=== PATIENT | male | born 1995 | race Caucasian/White ===

== ENCOUNTER 2022-09-25 11:46 | Inpatient (IN) | payer MEDICAID, OTHER ==
--- NOTE | 2022-09-25 12:19 | ED ---
Psych HPI - General Chief Complaint: Psychiatric Symptoms Stated Complaint: Mental Health Time Seen by Provider: 09/25/22 11:58 Source: patient, police, RN notes reviewed Mode of arrival: ambulatory - History of Present Illness Initial Comments: Patient is a 27-year-old male brought into the emergency room via [facility] escort as he is currently representing chronic any penitentiary for suicidal ideation. Patient has significant mental health history with multiple suicide attempts in the past. He reports that he has been diagnosed with bipolar depression along with schizophrenia and hears voices often. He states that the voices he currently hears are telling him to kill himself. He reports that he has been on medication in the past but has not been on any medication and approximately 6 months. He recently moved to [place] and has been in the area for 3 weeks. He was previously living in [place] where he obtained his previous mental health treatment. He has a past medical history significant for hypertension gastritis and pancreatitis with no evidence of current flares. - Related Data Allergies Allergy/AdvReac Type Severity Reaction Status Date / Time codeine Allergy Rash/Hives Verified 09/25/22 11:54 fentanyl Allergy Rash/Hives Verified 09/25/22 11:54 Review of Systems ROS Statement: Those systems with pertinent positive or pertinent negative responses have been documented in the HPI. ROS Other: All systems not noted in ROS Statement are negative. Past Medical History Past Medical History: Hypertension Additional Past Medical History / Comment(s): Gastritis, Pancreatitis History of Any Multi-Drug Resistant Organisms: None Reported Past Surgical History: No Surgical Hx Reported Past Psychological History: ADD/ADHD, Anxiety, Bipolar, Depression, Schizophrenia Smoking Status: Current every day smoker Past Alcohol Use History: Occasional Past Drug Use History: None Reported General Exam General appearance: alert, in no apparent distress Head exam: Present: atraumatic, normocephalic, normal inspection Eye exam: Present: normal appearance, PERRL, EOMI. Absent: scleral icterus, conjunctival injection, periorbital swelling ENT exam: Present: normal exam, mucous membranes moist Neck exam: Present: normal inspection, full ROM Respiratory exam: Present: normal lung sounds bilaterally. Absent: respiratory distress, wheezes, rales, rhonchi, stridor Cardiovascular Exam: Present: regular rate, normal rhythm, normal heart sounds. Absent: systolic murmur, diastolic murmur, rubs, gallop, clicks GI/Abdominal exam: Present: soft, normal bowel sounds. Absent: distended, tenderness, guarding, rebound, rigid Extremities exam: Present: normal inspection. Absent: pedal edema, joint swelling Back exam: Present: normal inspection Neurological exam: Present: alert, oriented X3, CN II-XII intact Psychiatric exam: Present: depressed, suicidal ideation Skin exam: Present: warm, dry, intact, normal color. Absent: rash Course Vital Signs 09/25/22 11:50 Temperature 97.9 F Pulse Rate 73 Respiratory 20 Rate Blood Pressure 145/86 O2 Sat by Pulse 97 Oximetry Medical Decision Making - Medical Decision Making 27-year-old male presenting for psychiatric evaluation for suicidal ideation with known bipolar depression and schizophrenia. Patient with hospital insurance clerk escort. Application of 50 gallon not applied due to presenting uniform; handcuffs to lower and upper extremities remain intact. Otherwise no other belongings at bedside. Breath alcohol test 0.00. Will cleared from a medical standpoint for EPS evaluation. EPS evaluation complete. Patient is voluntarily admitting himself for inpatient psychiatric treatment. Will discharge for admission to psychiatric services. Case discussed with Dr. Tovar. Disposition Clinical Impression: Depression, Suicidal ideation Disposition: TRANSFER TO PSYCH HOSP/UNIT Condition: Stable Is patient prescribed a controlled substance at d/c from ED?: No Referrals: None,Stated [Primary Care Provider] - 1-2 days Time of Disposition: 14:38
[2022-09-25] MEDS ORDERED: ACETAMINOPHEN TAB 325 MG TAB PO PRN (14:53)
[2022-09-25] MEDS ORDERED: HALOPERIDOL LACTATE 5 MG/ML 1 ML VIAL IM PRN (14:53)
[2022-09-25] MEDS ORDERED: MAG HYDROX/AL HYDROX/SIMETH 30 ML CUP PO PRN (14:53)
[2022-09-25] MEDS ORDERED: MAGNESIUM HYDROXIDE 2,400 MG/10 ML CUP PO PRN (14:53)
[2022-09-25] MEDS ORDERED: LORazepam 1 MG/0.5 ML VIAL IM PRN (15:00)
[2022-09-25] MEDS ORDERED: haloperidoL 5 MG TAB PO PRN (15:01)
--- NOTE | 2022-09-26 02:58 | P.CONS ---
History of Present Illness - Reason for Consult Consult date: 09/26/22 - History of Present Illness The patient is a 27-year-old male with a PMH of psychiatric illnesses who was brought in to the emergency room under police custody while in longterm for reported suicidal ideation. The patient was admitted to the mental health unit where he was seen and evaluated. The patient states that he wanted to get help for all the voices in his head. He reports no physical complaints at the time of interview. States that he smokes 3 packs of cigarettes daily. Denied experiencing chest discomfort, shortness of breath, fever, chills, cough, nausea, vomiting, abdominal pain, diarrhea. Review of systems: Pertinent positives and negatives as discussed in HPI, a complete review of systems was performed and all other systems are negative. Physical examination: General: non toxic, no distress, appears at stated age, normal weight Derm: no unusual rashes/lesions, no unusual ecchymoses, warm, dry Head: atraumatic, normocephalic, symmetric Eyes: EOMI, no lid lag, anicteric sclera ENT: Nose and ears atraumatic, no thrush, no pharyngeal erythema Neck: trachea midline, supple Mouth: no lip lesion, mucus membranes moist Cardiovascular: S1S2 reg, no murmur, no edema Lungs: CTA bilateral, no rhonchi, no rales , no accessory muscle use Abdominal: soft, nontender to palpation, no guarding Ext: no gross muscle atrophy, no contractures, Neuro: No gross focal neuro deficits noted Psych: Alert, oriented, appropriate affect Assessment/plan Tobacco abuse -Advised on importance of cessation Psychosis -As per psychiatry Thank you for allowing us to participate in the care of this patient. We will follow peripherally. Do not hesitate to contact us with questions. Someone can be reached from the [facility] hospitalist group at all hours of the day at [phone]. Past Medical History Past Medical History: Hypertension Additional Past Medical History / Comment(s): Gastritis, Pancreatitis, nate- short syndrome, angina History of Any Multi-Drug Resistant Organisms: None Reported Past Surgical History: No Surgical Hx Reported Past Anesthesia/Blood Transfusion Reactions: No Reported Reaction Past Psychological History: ADD/ADHD, Anxiety, Bipolar, Depression, Schizophrenia Smoking Status: Current every day smoker Past Alcohol Use History: Occasional Past Drug Use History: None Reported - Past Family History Mother Family Medical History: Hyperlipidemia Medications and Allergies Home Medications Medication Instructions Recorded Confirmed Type No Known Home Medications 09/25/22 09/25/22 History Allergies Allergy/AdvReac Type Severity Reaction Status Date / Time codeine Allergy Rash/Hives Verified 09/25/22 15:36 fentanyl Allergy Rash/Hives Verified 09/25/22 15:36 Physical Exam Vitals: Vital Signs Temp Pulse Pulse Resp BP BP Pulse Ox 09/26/22 01:31 97.5 F L 69 16 121/78 99 09/25/22 15:06 64 18 144/88 100 09/25/22 14:51 97.7 F 137/88 09/25/22 11:50 97.9 F 73 20 145/86 97 Intake and Output 09/25/22 09/25/22 09/26/22 14:59 22:59 06:59 Other: Weight 90.718 kg
[2022-09-26] MEDS: NICOTINE 14MG/24HR PATCH TRANSDERM SCH ×2 (10:14→20:00)
[2022-09-26] MEDS ORDERED: ARIPiprazole 5 MG TAB PO SCH (14:30)
[2022-09-26] MEDS: LORazepam 1 MG TAB PO PRN ×3 (14:40→23:57)
[2022-09-26] MEDS: DIVALPROEX 500 MG TABLET.DR PO SCH ×2 (14:40→20:00)
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
[2022-09-26] MEDS ORDERED: PRAZOSIN 1 MG CAP PO SCH (21:00)
[2022-09-26] MEDS ORDERED: traZODone HCL 50 MG TAB PO SCH (21:00)
[2022-09-27 00:04] LABS: Glucose,Whole Blood 101 mg/dL (70-110)
[2022-09-27] MEDS ORDERED: KETOROLAC 15 MG/ML 1 ML VIAL IM STA (00:40)
[2022-09-27] MEDS ORDERED: ONDANSETRON 4 MG/2 ML VIAL IM STA (00:41)
--- NOTE | 2022-09-27 00:53 | XR ---
EXAMINATION TYPE: XR chest 1V portable DATE OF EXAM: 09/27/2022 COMPARISON: NONE HISTORY: Chest pain TECHNIQUE: Single view FINDINGS: There is no heart failure nor confluent pneumonic infiltrate. Costophrenic angles are clear . There are no hilar masses. IMPRESSION: No active cardiopulmonary disease. Normal heart.
[2022-09-27 01:09] LABS: Appearance,Urine Clear (Clear); Bilirubin,Urine Negative (Negative); Blood,Urine Negative (Negative); Color,Urine Colorless; Glucose,Urine (UA) Negative (Negative); Ketones,Urine Negative (Negative); Leukocyte Esterase,Urine Negative (Negative); Nitrite,Urine Negative (Negative); PH, Urine 7.5 (5.0-8.0); Protein,Urine Negative (Negative); Specific Gravity,Urine 1.006 (1.001-1.035); Urobilinogen,Urine <2.0 mg/dL (<2.0)
[2022-09-27 01:11] LABS: HCT 40.4 % (39.0-53.0); HGB 14.2 gm/dL (13.0-17.5); MCH 31.2 pg (25.0-35.0); MCHC 35.2 g/dL (31.0-37.0); MCV 88.5 fL (80.0-100.0); Mean Platelet Volume 9.4; Platelet Count 264 k/uL (150-450); RBC 4.56 m/uL (4.30-5.90); RDW 12.7 % (11.5-15.5); WBC 10.8 k/uL (3.8-10.6)
[2022-09-27 01:20] LABS: Amphetamine Screen,Urine Not Detected (NotDetected); Barbiturate Screen,Urine Not Detected (NotDetected); Benzodiazepines Screen,Urine Not Detected (NotDetected); Cocaine Screen,Urine Not Detected (NotDetected); Methadone Screen, Urine Not Detected (NotDetected); Opiate Screen,Urine Not Detected (NotDetected); Oxycodone Screen, Urine Not Detected (NotDetected); Phencyclidine Screen,Urine Not Detected (NotDetected); Tricyclic Antidepressant,Urine Not Detected (NotDetected); Urn Cannabinoid Scrn Detected (NotDetected)
[2022-09-27 01:22] VITALS: RESP 20
[2022-09-27 01:29] LABS: AST 37 U/L (17-59); African American GFR (CKD) >90 (>60 ml/min/1.73 sqM); Albumin 5.3 g/dL (3.5-5.0); Alkaline Phosphatase 131 U/L (38-126); Anion Gap 23 mmol/L; Blood Urea Nitrogen 16 mg/dL (9-20); Carbon Dioxide 17 mmol/L (22-30); Chloride 97 mmol/L (98-107); Glucose 103 mg/dL (74-99); Non-African American GFR(CKD) >90 (>60 ml/min/1.73 sqM); Potassium 4.2 mmol/L (3.5-5.1); Sodium 137 mmol/L (137-145); Total Bilirubin 0.5 mg/dL (0.2-1.3); Total Protein 7.9 g/dL (6.3-8.2)
[2022-09-27 01:38] LABS: ALT 41 U/L (4-49)
[2022-09-27 01:38] LABS: ABG Base Excess 3.4 mmol/L; ABG HCO3 27 mmol/L (21-25); ABG Oxygen Saturation 92.8 % (94-97); ABG PCO2 38 mmHg (35-45); ABG PH 7.47 (7.35-7.45); ABG PO2 64 mmHg (83-108); ABG TCO2 28 mmol/L (19-24); Allen Test Performed? Yes
[2022-09-27 01:58] VITALS: TEMP 99.1
[2022-09-27 02:08] VITALS: BP 121/57; PULSE 93
--- NOTE | 2022-09-27 02:13 | P.EN ---
A- team: Indication: Chest pain, tremulousness Arrived on Scene to find: Patient with severe tremors involving all extremities, complaining of right-sided sharp pleuritic chest discomfort with radiation of the right arm, 10 out of 10 in intensity. The patient was initially admitted to the hospital for depression and suicidal ideation from group home had complained of tremors and agitation to the mental health unit RN and was given Haldol 5 mg by mouth and Ativan 1 mg by mouth at 2357. The patient was subsequently noted to be complaining of chest pain at 0009. The A team subsequently activated. Patient reported feeling overall not well but denied any additional complaints aside from the right-sided chest pain. Vital signs reviewed: BP 173/81, pulse 142, SpO2 98% on room air, temp 98.1F Patient seen and examined at bedside. General: Tremulous, anxious appearing, [appears at stated age] Derm: [warm], [dry] Head: [atraumatic], [normocephalic], [symmetric] Eyes: [EOMI], [no lid lag], [anicteric sclera] Mouth: [no lip lesion], [mucus membranes moist] Cardiovascular: [S1S2 reg], tachycardic, [no murmur], [positive posterior tibial pulse bilateral], Lungs: [CTA bilateral], [no rhonchi, no rales] , [no accessory muscle use] Abdominal: [soft], [ nontender to palpation], [no guarding], [no appreciable organomegaly] Ext: [no gross muscle atrophy], [no edema], [no contractures] Neuro: [ CN II-XI grossly intact], [no focal neuro deficits] Psych: [Alert], [oriented], anxious and tremulous Assessment/Plan: Agitation with tremulousness and right-sided pleuritic chest pain -Unclear etiology -EKG showing tachycardia with poor baseline -D-dimer, troponin, urine drug screen, and chest x-ray ordered -Continue to monitor the patient closely -Toradol ordered for possible musculoskeletal chest pain A Total of 45 minutes of critical care time was spent on the complex care of this patient.
--- NOTE | 2022-09-27 02:46 | CT ---
EXAMINATION TYPE: CT brain wo con DATE OF EXAM: 09/27/2022 COMPARISON: None HISTORY: apneic episode. ams CT DLP: 1115.4 mGycm Automated exposure control for dose reduction was used. Images of the brain obtained with no contrast. Ventricles and sulci appear normal. There is no mass effect or midline shift. No sign of intracranial hemorrhage. Calvarium is intact. There is normal aeration of the mastoid sinuses. IMPRESSION: Negative unenhanced head CT scan.
--- NOTE | 2022-09-27 02:55 | CT ---
EXAMINATION TYPE: CT angio chest DATE OF EXAM: 09/27/2022 COMPARISON: None HISTORY: elevated d-dimer CT DLP: 525.5 mGycm Automated exposure control for dose reduction was used. CONTRAST: Performed with IV Contrast, patient injected with 100 mL of Isovue 370. There are 3-D post processed images. Heart and mediastinum appear normal. There are no hilar masses. Thoracic aorta is intact. No aneurysm or dissection. No evidence of filling defect in the pulmonary arteries. The lungs are clear of infiltrate. No pleural effusion. The thoracic spine is intact. No fracture. St ernum is intact. IMPRESSION: Negative CT angiogram of the chest. No evidence of pulmonary embolism.
== END 2022-09-27 02:14 | disposition short-term general hospital (02) | DRG 885 ==
LOC: EC 11:46 → 3MHU 14:51
PROVIDERS: ADMIT Psychiatry & Neurology Psychiatry; ATTEND Psychiatry & Neurology Psychiatry
DX: F39 Unspecified mood [affective] disorder (principal); R45.851 Suicidal ideations; F17.210 Nicotine dependence, cigarettes, uncomplicated; F20.9 Schizophrenia, unspecified; F31.30 Bipolar disorder, current episode depressed, mild or moderate severity, unspecified; R07.89 Other chest pain; R00.0 Tachycardia, unspecified; F43.10 Post-traumatic stress disorder, unspecified; F60.9 Personality disorder, unspecified; I10 Essential (primary) hypertension; R45.850 Homicidal ideations; Y04.2XXA Assault by strike against or bumped into by another person, initial encounter; Z62.810 Personal history of physical and sexual abuse in childhood; Z81.8 Family history of other mental and behavioral disorders; Z91.51 Personal history of suicidal behavior
CPT/HCPCS: 36600; 70450; 71045; 71275; 80053; 80164; 80306; 81003; 82075; 82550; 82805; 83605; 84484; 85027; 85379; 87040; 87635; 93005; 99285

== ENCOUNTER 2022-09-27 01:36 | Inpatient (IN) | payer OTHER ==
[2022-09-27] MEDS ORDERED: ACETAMINOPHEN TAB 325 MG TAB PO PRN (02:55)
[2022-09-27] MEDS ORDERED: NALOXONE 0.4 MG/ML 1 ML VIAL IV PRN (02:55)
--- NOTE | 2022-09-27 03:19 | P.HPIM ---
History of Present Illness H&P Date: 09/27/22 The patient is a 27-year-old male with a PMH of psychiatric illnesses was brought in to the emergency room from intermediate due to suicidal ideation. The patient was admitted to the mental health unit. The patient had been in his usual state of health until about 11:30 PM on 09/26. He complained of gradually worsening tremors and anxiety. The patient was given Haldol 5 mg by mouth and Ativan 1 mg by mouth, following which the patient reported that his tremors had worsened and that he now also had right-sided pleuritic chest discomfort. The patient was initially seen on the mental health unit where he was noted to be agitated and tremulous, complaining of right-sided pleuritic chest pain. EKG had revealed sinus tachycardia with a poor baseline due to severe tremors. The patient was initially given Toradol IM for suspected costochondritis as well as Zofran for nausea. Troponin was obtained which was less than 0.012. Urine drug screen was positive for marijuana only, with chest x-ray unremarkable. The d- dimer was also obtained which was elevated at 0.61. The initial impression was that the patient's agitation could be due to right-sided costochondritis causing anxiety and possible panic attack. I was subsequently notified by the mental health unit RN at 1 AM on 09/27 that the patient had become lethargic and hypoxic. He was seen again at the bedside on the mental health unit. He reported ongoing right-sided chest pain but stated that he now feels tired. The patient was noted to be having apneic episodes with SpO2 dropping into the 70s with perioral cyanosis noted. The patient was arousable with tactile stimulation with subsequent improvement in the SpO2. The patient denied fever, abdominal pain, diarrhea. Denied headache, weakness, numbness, tingling. Review of systems: Pertinent positives and negatives as discussed in HPI, a complete review of systems was performed and all other systems are negative. Physical examination: General: non toxic, no distress, appears at stated age, normal weight Derm: no unusual rashes/lesions, warm Head: atraumatic, normocephalic, symmetric Eyes: EOMI, no lid lag, anicteric sclera, pupils equal round reactive to light ENT: Nose and ears atraumatic Neck: No cervical lymphadenopathy, trachea midline, supple Mouth: no lip lesion, mucus membranes moist Cardiovascular: S1S2 reg, no murmur, positive dorsalis pedis pulse bilateral, no edema Lungs: CTA bilateral, no rhonchi, no rales, intermittent apneic episodes Abdominal: soft, nontender to palpation, no guarding Ext: muscle strength 4 out of 5 in all 4 extremities grossly, no gross muscle atrophy, no contractures Neuro: CN II-XI grossly intact, no gross focal neuro deficits Psych: Lethargic, appropriate affect Assessment/plan Altered mental status with respiratory depression, unclear etiology, unable to rule out neuroleptic malignant syndrome with less likely sepsis versus seizure disorder versus medication reaction -CT angiogram chest ordered -CT brain ordered -Case was discussed in detail with neurologist and char filter operator radio station engineer -Patient transferred to medical ICU due to concerns for impending respiratory failure -Follow-up CK, lactic acid, Depakote levels, CBC, and CMP -Patient afebrile -Neurology consulted Depression with suicidal ideation -Defer to psychiatry DVT prophylaxis -Heparin subq The patient is admitted with an anticipated greater than 2 midnight stay for evaluation of altered mental status CODE STATUS: Full Code Discussed with: Patient Anticipated discharge date: 2-[address]: [facility] Past Medical History Past Medical History: Hypertension Additional Past Medical History / Comment(s): Gastritis, Pancreatitis, nate- short syndrome, angina History of Any Multi-Drug Resistant Organisms: None Reported Past Surgical History: No Surgical Hx Reported Past Anesthesia/Blood Transfusion Reactions: No Reported Reaction Past Psychological History: ADD/ADHD, Anxiety, Bipolar, Depression, Schizophrenia Smoking Status: Current every day smoker Past Alcohol Use History: Occasional Past Drug Use History: None Reported - Past Family History Mother Family Medical History: Hyperlipidemia Medications and Allergies Home Medications Medication Instructions Recorded Confirmed Type No Known Home Medications 09/25/22 09/25/22 History Allergies Allergy/AdvReac Type Severity Reaction Status Date / Time codeine Allergy Rash/Hives Verified 09/25/22 15:36 fentanyl Allergy Rash/Hives Verified 09/25/22 15:36 Physical Exam Vitals: Intake and Output 09/26/22 09/26/22 09/27/22 14:59 22:59 05:59 Other: Weight 86.5 kg
[2022-09-27 05:49] LABS: Basophils # (A) 0.1 k/uL (0-0.2); Basophils % (A) 1 %; Eosinophils # (A) 0.2 k/uL (0-0.7); Eosinophils % (A) 2 %; HCT 40.7 % (39.0-53.0); HGB 13.9 gm/dL (13.0-17.5); Lymphocytes # (A) 2.7 k/uL (1.0-4.8); Lymphocytes % (A) 26 %; MCH 30.2 pg (25.0-35.0); MCV 88.8 fL (80.0-100.0); Mean Platelet Volume 8.9; Monocytes # (A) 0.5 k/uL (0-1.0); Monocytes % (A) 5 %; Neutrophils # (A) 6.6 k/uL (1.3-7.7); Neutrophils % (A) 65 %; Platelet Count 271 k/uL (150-450); RBC 4.59 m/uL (4.30-5.90); RDW 12.7 % (11.5-15.5); WBC 10.3 k/uL (3.8-10.6)
[2022-09-27 06:04] LABS: African American GFR (CKD) >90 (>60 ml/min/1.73 sqM); Anion Gap 13 mmol/L; Blood Urea Nitrogen 17 mg/dL (9-20); Calcium 9.1 mg/dL (8.4-10.2); Carbon Dioxide 23 mmol/L (22-30); Chloride 99 mmol/L (98-107); Glucose 94 mg/dL (74-99); Magnesium 2.1 mg/dL (1.6-2.3); Non-African American GFR(CKD) >90 (>60 ml/min/1.73 sqM); Potassium 4.2 mmol/L (3.5-5.1); Sodium 135 mmol/L (137-145)
--- NOTE | 2022-09-27 10:07 | P.PN ---
Progress Note - Text Progress Note Date: 09/27/22 Patient was seen and examined today, he told me that last night he had seizure- like activity shaking both arms and legs after his psychiatric medications were started. Denied loss of consciousness, tongue biting, urinary incontinence. He also had left and right-sided chest pains and was hypoxic as well. CT angiogram of the chest was negative, head CT was negative. Case was discussed with neurology, medication side effects is high in the differential. He will need an EEG done, to rule out seizure. Neurologist recommended starting Depakote for mood stabilization as well as seizure prevention. Neurologist stated this is unlikely neuroleptic malignant syndrome as his CK was not that high. Continue to monitor in the medical floor for 1 more day then if stable can go back to mental health unit.
--- NOTE | 2022-09-27 10:09 | P.CNPUL ---
History of Present Illness Consult date: 09/27/22 Requesting physician: Nelsy Johnson Reason for consult: hypoxemia, other Chief complaint: Hypotension. History of present illness: Pulmonary/critical care consultation dated 09/27/2022. This is a 27-year-old white male who was admitted to the psychiatric unit, because of suicidal ideation. Apparently, last night at 11:30 PM, the patient developed anxiety and tremors. He was treated with Ativan 1 mg and Haldol 5 mg. After that, the patient's blood pressure dropped and his saturations drop. A rapid response team was called. The patient was given Toradol, and Zofran, and because the patient was so unstable, the patient was transferred to the ICU for further monitoring and management. Currently, the patient's on room air. He's not receiving any IV fluids. After he got to the ICU, he was completely stable and stable throughout the night. It is not very clear what happened to him last night. I did speak to the hospital doctor timber poisoner last night. Initially, they thought he might have a pulmonary embolism. Studies were done. White count 10.3, hemoglobin 13.9, hematocrit 40.7, and platelet count normal. Sodium 135, potassium 4.2, chlorides 99, CO2 23, anion gap 13, BUN 17, and creatinine 0.95. CT angiogram was negative for pulmonary embolism. The brain CT was also negat fe. The chest x-ray was normal. Review of Systems REVIEW OF SYSTEMS: Currently, the patient has no complaints. CONSTITUTIONAL: [Negative.] NEUROLOGIC: [ Negative.] HEENT: [ Negative.] CARDIAC: [Negative.] PULMONARY: [Negative.] GI: [Negative.] : [Negative.] RHEUMATOLOGIC: [ Negative.] IMMUNOLOGIC: [ Negative.] ENDOCRINE: [Negative. ] DERMATOLOGIC: [Negative.] Past Medical History Past Medical History: Hypertension Additional Past Medical History / Comment(s): Gastritis, Pancreatitis, nate- short syndrome, angina History of Any Multi-Drug Resistant Organisms: None Reported Past Surgical History: No Surgical Hx Reported Past Anesthesia/Blood Transfusion Reactions: No Reported Reaction Past Psychological History: ADD/ADHD, Anxiety, Bipolar, Depression, Schizophrenia Smoking Status: Current every day smoker Past Alcohol Use History: Occasional Past Drug Use History: None Reported - Past Family History Mother Family Medical History: Hyperlipidemia Father Family Medical History: Chest Pain / Angina Additional Family Medical History / Comment(s): Heart murmmur Medications and Allergies Home Medications Medication Instructions Recorded Confirmed Type No Known Home Medications 09/25/22 09/25/22 History Allergies Allergy/AdvReac Type Severity Reaction Status Date / Time codeine Allergy Rash/Hives Verified 09/25/22 15:36 fentanyl Allergy Rash/Hives Verified 09/25/22 15:36 Physical Exam Osteopathic Statement: *. No significant issues noted on an osteopathic s tructural exam other than those noted in the History and Physical/Consult. Vitals: Vital Signs Temp Pulse Resp BP Pulse Ox 09/27/22 08:00 97.8 F 62 17 95/48 95 09/27/22 07:35 95 09/27/22 07:00 67 105/66 95 09/27/22 06:00 69 95/46 09/27/22 05:00 67 129/60 94 L 09/27/22 04:00 81 23 109/51 97 09/27/22 03:40 90 16 09/27/22 03:00 93 130/74 97 09/27/22 02:41 97.5 F L 85 28 H 130/74 97 Intake and Output 09/26/22 09/27/22 09/27/22 23:59 06:59 14:59 Intake Total 200 Output Total 250 Balance -50 Intake: Oral 200 Output: Urine 250 Other: # Voids 0 Weight No acute distress, oriented 3. Room air saturation 95%. HEENT examination is grossly unremarkable. Neck supple. Full range of motion. No adenopathy thyromegaly or neck vein distention. Cardiovascular examination reveals regular rhythm rate. S1-S2 normal. No S3 or S4. No discernible murmur noted. Heart rate 62 bpm. Lungs reveal clear breath sounds. Breath sounds are equal bilaterally. No adventitious lung sounds including wheezes rhonchi or crackles. Abdomen soft bowel sounds are heard. No masses or tenderness. Extremities are intact. No cyanosis clubbing or edema. Skin is without rash or lesion. Neurologic examination is brief but nonfocal. Results - Laboratory Findings CBC and BMP: 09/27/22 04:40 09/27/22 04:40 Abnormal lab findings: Abnormal Labs 09/27/22 04:40 Sodium 135 L - Diagnostic Findings Chest x-ray: image reviewed CT scan - chest: image reviewed Assessment and Plan Assessment: Tremors, anxiety, hypotension, and hypoxemic, all of which may relate to the administration of Ativan and Haldol. Currently, the patient is asymptomatic. History of suicidal ideation. No significant past medical history. Drug screen positive for THC. Plan: Plan dated 09/27/2022. Not sure what happened to the patient last night. Anyway, the patient's back to baseline. Vital signs are stable. Actually, through the night, in the intensive care unit, there've been no changes in his vital signs, and he is not manifesting any additional hypotension or low saturations. The patient could be transferred back to psychiatry. His reaction may be to the medications he received, i.e. Ativan and Haldol. CAT scan of the brain, CT angiogram, and chest x-ray, were all normal. Time with Patient: Greater than 30
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
[2022-09-27] MEDS: DIVALPROEX 250 MG TABLET.DR PO SCH (20:13)
[2022-09-27] MEDS ORDERED: traZODone HCL 50 MG TAB PO SCH (21:00)
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
[2022-09-28 04:25] LABS: Basophils # (A) 0.1 k/uL (0-0.2); Basophils % (A) 1 %; Eosinophils # (A) 0.3 k/uL (0-0.7); Eosinophils % (A) 3 %; HCT 42.3 % (39.0-53.0); HGB 14.4 gm/dL (13.0-17.5); Lymphocytes # (A) 3.3 k/uL (1.0-4.8); Lymphocytes % (A) 40 %; MCH 30.8 pg (25.0-35.0); MCHC 33.9 g/dL (31.0-37.0); MCV 90.7 fL (80.0-100.0); Mean Platelet Volume 8.6; Monocytes # (A) 0.3 k/uL (0-1.0); Monocytes % (A) 4 %; Neutrophils # (A) 4.2 k/uL (1.3-7.7); Neutrophils % (A) 50 %; Platelet Count 256 k/uL (150-450); RBC 4.67 m/uL (4.30-5.90); RDW 12.8 % (11.5-15.5); WBC 8.3 k/uL (3.8-10.6)
[2022-09-28 04:36] LABS: African American GFR (CKD) >90 (>60 ml/min/1.73 sqM); Anion Gap 7 mmol/L; Blood Urea Nitrogen 18 mg/dL (9-20); Calcium 9.2 mg/dL (8.4-10.2); Carbon Dioxide 25 mmol/L (22-30); Chloride 105 mmol/L (98-107); Glucose 92 mg/dL (74-99); Non-African American GFR(CKD) >90 (>60 ml/min/1.73 sqM); Potassium 4.5 mmol/L (3.5-5.1); Sodium 137 mmol/L (137-145)
--- NOTE | 2022-09-28 08:49 | P.PN ---
Progress Note - Text Progress Note Date: 09/28/22 The preliminary STAT EEG on 09/27/2022: This is a normal routine EEG during wakefulness. There is no focal slowing, epileptiform discharges or seizures on the EEG. I spoke with the patient's nurse and updated of the result. I was notified no overnight events and patient continues to be at baseline. From Neurological perspective, patient is clear to discharge to psychiatry unit.
[2022-09-28] MEDS ORDERED: ENOXAPARIN 40 MG/0.4 ML SYRINGE SQ SCH (09:45)
--- NOTE | 2022-09-28 09:48 | P.PN ---
Subjective Progress Note Date: 09/28/22 Principal diagnosis: mood disorder Hospital Course: 27-year-old with history of psychiatric illnesses was initially brought to the ER from senior care due to suicidal ideation. Patient was admitted to mental health unit. On 09/27, patient was found to be more lethargic and hypoxic, and was transferred to medical ICU for concerns of impending respiratory failure. Patient was evaluated by neurology, computer forwarding system markup clerk. EEG completed, no epileptiform discharges or seizures. Was recommended to resume Depakote. Patient remained completely stable while in the ICU. He could have had an adverse reaction to medications. Imaging were all normal. Patient evaluated by psychiatry, can be transferred to mental health unit once medically stable. Subjective: Patient seen and examined at bedside. No acute events overnight. He claims that he is still having anxiety, but denies any chest pain, shortness of breath, abdominal pain, diarrhea, constipation, or urinary complaints. Pertinent positives and negatives as discussed above, a complete review of systems was performed and all other systems are negative. Vitals Signs Reviewed. General: nontoxic, no distress, appears at stated age Derm: warm, dry Head: atraumatic, normocephalic, symmetric Eyes: EOMI, no lid lag, anicteric sclera Mouth: no lip lesion, mucus membranes moist Cardiovascular: S1S2 reg, no murmur Lungs: CTA bilateral, no rhonchi, no rales , no accessory muscle use Abdominal: soft, nontender to palpation, no guarding, no appreciable organomegaly Ext: no gross muscle atrophy, no edema, no contractures Neuro: CN II-XI grossly intact, no focal neuro deficits Psych: Alert, oriented, appropriate affect, anxious appearing Assessment and Plan: Acute encephalopathy - resolved -Possibly nonepileptic seizure -EEG shows no epileptiform discharges or seizure activity -Labs and imaging unremarkable -will likely transfer to mental health unit Mood disorder Suicidal ideations -Psychiatry following -On Depakote -Trazodone for sleep -Holding prazosin and Abilify per psychiatry -Continue 1:1 sitter -Suicide precautions Nicotine dependence -Counseled regarding cessation Code status: Full code Anticipated discharge place: [facility] Anticipated discharge time: Likely today Objective - Vital Signs Vital signs: Vital Signs Temp 97.6 F 09/27/22 16:00 Pulse 55 L 09/28/22 02:17 Resp 17 09/28/22 02:17 BP 117/74 11/06/22 16:00 Pulse Ox 98 09/27/22 16:00 FiO2 Intake & Output 09/27/22 09/28/22 09/28/22 18:59 06:59 18:59 Intake Total 200 240 Output Total 1050 850 Balance -850 -610 Weight 88.3 kg Intake: Oral 200 240 Output: Urine 1050 850 Other: # Voids 0 - Labs CBC & Chem 7: 09/28/22 03:30 09/28/22 03:30
[2022-09-28] MEDS: DIVALPROEX 250 MG TABLET.DR PO SCH (09:57)
[2022-09-28 10:05] VITALS: RESP 18
--- NOTE | 2022-09-28 12:43 | P.PN ---
Subjective Progress Note Date: 09/28/22 Principal diagnosis: Acute psychosis with tremors anxiety requiring Ativan and Haldol and suicidal ideations This is a 27-year-old white male who was admitted to the psychiatric unit, because of suicidal ideation. Apparently, last night at 11:30 PM, the patient developed anxiety and tremors. He was treated with Ativan 1 mg and Haldol 5 mg. After that, the patient's blood pressure dropped and his saturations drop. A rapid response team was called. The patient was given Toradol, and Zofran, and because the patient was so unstable, the patient was transferred to the ICU for further monitoring and management. Currently, the patient's on room air. He's not receiving any IV fluids. After he got to the ICU, he was completely stable and stable throughout the night. It is not very clear what happened to him last night. I did speak to the hospital doctor customer contact specialist last night. Initially, they thought he might have a pulmonary embolism. Studies were done. White count 10.3, hemoglobin 13.9, hematocrit 40.7, and platelet count normal. Sodium 135, potassium 4.2, chlorides 99, CO2 23, anion gap 13, BUN 17, and creatinine 0.95. CT angiogram was negative for pulmonary embolism. The brain CT was also negative. The chest x-ray was normal. Reevaluated today on 09/28/22 patient remains in the ICU as an overflow, waiting for a psychiatric bed to open. Patient is calm, very pleasant, in no distress, he is hemodynamically stable, patient is on room air, no issues overnight. CBC is normal elect lites are normal renal profile is normal. Hence I plan to transfer the patient to the psychiatric kimbrough sometime later today Objective - Vital Signs Vital signs: Vital Signs Temp 97.7 F 09/28/22 10:04 Pulse 63 09/28/22 10:04 Resp 18 09/28/22 10:04 BP 128/73 09/28/22 10:04 Pulse Ox 95 09/28/22 10:04 FiO2 Intake & Output 09/27/22 09/28/22 09/28/22 18:59 06:59 18:59 Intake Total 200 240 300 Output Total 1050 850 450 Balance -850 -610 -150 Weight 88.3 kg Intake: Oral 200 240 300 Output: Urine 1050 850 450 Other: # Voids 0 - Exam Physical Exam: Revealed a 27-year-old white male in no distress on room air Head: Atraumatic, normocephalic. HEENT:[Neck is supple.] [No neck masses.] [No thyromegaly.] [No JVD.] Chest: [Clear throughout, no crackles, no rhonchi, no wheezes.] Cardiac Exam: [Normal S1 and S2, no S3 gallop, no murmur.] Abdomen: [Soft, nontender, no megaly, no rebound, no guarding, normal bowel sounds.] Extremities: [No clubbing, no edema, no cyanosis.] Neurological Exam: [No focal neurologic deficit.] Alert oriented 3 Psychiatric: Normal mood affect and normal mental status examination. Skin: Normal. Musculoskeletal: No deformities and no limitation in range of motion - Labs CBC & Chem 7: 09/28/22 03:30 09/28/22 03:30 Assessment and Plan Assessment: Impression: Acute encephalopathy with symptoms of psychosis, suicidal ideations, resolved. Patient is doing great today, he is extremely calm, basically back to normal, and I plan to transfer the patient out of the ICU to psychiatry. Suicidal ideations, resolved Recommendation: Continue treatment plan as per psychiatry and neurology on the case. We will sign off and see the patient on when necessary basis Time with Patient: Less than 30
--- NOTE | 2022-09-28 13:13 | CDI ---
Date: 09/28/2001 12:00:00 AM From: Etienne Phoenix Phone: Admit Date: 09/27/2022 02:15:00 AM Patient Name: Freedom Bright Visit Number: [id number] Discharge Date: ATTENTION: The Clinical Documentation Specialists (CDI) and [facility] Coding Staff appreciate your assistance in clarifying documentation. Please respond to the clarification below the line at the bottom and electronically sign. The CDI & [facility] Coding staff will review the response and follow-up if needed. Please note: Queries are made part of the Legal Health Record. If you have any questions, please contact the author of this message via ITS. Dr. Sharad Welsh Acute Encephalopathy is documented per the 09/28 Progress note. Additional clarification regarding the type of encephalopathy is requested. History/Risk Factors: 27yo male with psychiatric illnesses brought in with suicidal ideation. While on the mental health unit the patient complained of worsening anxiety and tremors, became lethargic and hypoxic, and was subsequently transferred to the intensive care unit for further care. Clinical Indicators: 09/27 H&P: Altered mental status - unclear etiology. Given 5mg Haldol po and 1mg Ativan po while on mental health unit. Possible etiologies include Neuroleptic Malignant syndrome, less likely Sepsis, vs Seizure disorder vs Medication reaction. 09/27 Neurology consult: Encephalopathy of unknow etiology but could be due to as a result of medication use - While at the unit the patient was getting Depakote 500mg every 12 hours. Also, he was on Abilify 5mg, prazosin 1mg daily at bedtime, trazadone 50mg. Again, patient stated that he was not on medication for almost 3 weeks for his psychiatric medicationOf note since the patient has been in the ICU patients nurse stated that he is back to baseline and no further confusion or tremor. His psychiatric medication was placed on hold. 09/28 Progress note: Acute Encephalopathy Resolved, possibly non-epileptic seizure, EEG shows no epileptiform discharges or seizure activity, labs and imaging unremarkable. Labs: CK 459, WBC 10.3, UDS with no findings. EE/6 Normal EEG during wakefulness. No focal slowing, epileptiform discharges or seizures. Treatment: Psychiatric medications held while inpatient, Depakote reduced from 500mg to 250mg BID. Please clarify the type of encephalopathy, if known: [ ] Metabolic Encephalopathy [ x ] Toxic Encephalopathy [ ] Other, please specify [ ] Unable to determine MTDD
--- NOTE | 2022-09-28 14:24 | P.PN ---
Subjective Progress Note Date: 09/28/22 No further episodes of confusion, tremors. Patient continues to be stable and ICU according to the nurse. She states that he's doing well and denies of any neurological issues. Objective - Vital Signs Vital signs: Vital Signs Temp 97.7 F 09/28/22 10:04 Pulse 63 09/28/22 10:04 Resp 18 09/28/22 10:04 BP 128/73 09/28/22 10:04 Pulse Ox 95 09/28/22 10:04 FiO2 Intake & Output 09/27/22 09/28/22 09/28/22 18:59 06:59 18:59 Intake Total 200 240 900 Output Total 1050 850 450 Balance -850 -610 450 Weight 88.3 kg Intake: Oral 200 240 900 Output: Urine 1050 850 450 Other: # Voids 0 - Exam GENERAL: The patient is lying in bed and is not in acute distress. NEUROLOGICAL: Higher mental function: The patient is awake, alert, oriented to self, place and time. Patient is following commands. No aphasia and no neglect. Cranial nerves: The pupils are round, equal and reactive to light and accommodation. Visual ferris are full to confrontation throughout. Extraocular movement is intact no nystagmus is noted. Facial sensation is normal to touch throughout. The facial strength is normal throughout. Hearing is normal kala aterally to hand rub. Tongue is midline and moved [id number] without any difficulty. No dysarthria is noted. Shoulder shrug is normal bilaterally. Motor: The strength is 5 over 5 throughout. Normal tone and bulk. Cerebellum: Normal finger to nose heel to hughes bilaterally. Sensation: Sensation is normal to touch throughout. Reflexes (right/left): 2+ throughout.. Plantars are downgoing bilaterally. While in psychiatric unit as result of episode of confusion work-up he had was: As a result he had CT of the head which is reported as negative unenhanced head CT scan. His plasma lactic acid the vein was 1.9 which is within normal limits. The CK level is 459 which is mildly elevated that. White blood cell is 10.3 thousand and the rest of the CBC with differential is unremarkable. His urine drug screen was not detected. His velasquez virus PCR was not detected on presentation. - Labs CBC & Chem 7: 09/28/22 03:30 11/07/22 03:30 Assessment and Plan Assessment: Encephalopathy of unknown etiology but could be due to as a result of medication use (multiple psychiatric medications). Very unlikely seizure since lactic acid vein was normal and cbc with diff was not reactive and no clear seizure activity. EEG on 09/27/2022 is normal. Patient has been back to baseline since throughout this admission. Mood disorder unspecified Depression with suicidal ideation Marijuana use Plan: STAT EEG on 09/27/2022: Normal. There is no focal slowing, epileptiform discharges or seizure. Currently on Depakote 250mg 1 tab bid for mood (but also has antiepileptic effect). Psychiatric team is consulted The plan discussed with the patient and his nurse. Otherwise no additional workup is needed from a neurological perspective. Neurology will sign off. Please reconsult if needed. Time with Patient: Less than 30
--- NOTE | 2022-09-28 15:32 | P.DS ---
Providers Date of admission: 09/27/22 02:15 Expected date of discharge: 09/28/22 Attending physician: Nelsy Johnson MD Consults: 09/27/22 02:55 Consult Physician Stat Consulting Provider: Irineo Eldridge Consult Reason/Comments: ICU management Do you want consulting provider notified?: Already Contacted 09/27/22 03:16 Consult Physician Urgent Consulting Provider: Pancho Eldridge Consult Reason/Comments: Altered mental status Do you want consulting provider notified?: Yes 09/27/22 03:30 Consult Physician Routine Consulting Provider: Psychiatry - [facility] Psychiatry Consult Reason/Comments: suicidal ideation Do you want consulting provider notified?: Yes, Notify in am Primary care physician: Stated None Hospital Course: Discharge Diagnosis: Acute encephalopathy Possible nonepileptic seizure More disorder Anxiety Suicidal ideations Insomnia Hospital Course: 27-year-old with history of psychiatric illnesses was initially brought to the ER from group home due to suicidal ideation. Patient was admitted to mental health unit. On 09/27, patient was found to be more lethargic and hypoxic, and was transferred to medical ICU for concerns of impending respiratory failure. Patient was evaluated by neurology, and nephrologist. EEG completed, no epileptiform discharges or seizures. Was recommended to resume Depakote. Patient remained completely stable while in the ICU. He could have had an adverse reaction to medications. Imaging were all normal. Patient to be transferred back to psychiatry on mental health unit. Patient seen and examined at bedside. Vital signs reviewed and stable. General: nontoxic, no distress, appears at stated age Derm: warm, dry Head: atraumatic, normocephalic, symmetric Eyes: EOMI, no lid lag, anicteric sclera Mouth: no lip lesion, mucus membranes moist Cardiovascular: S1S2 reg, no murmur Lungs: CTA bilateral, no rhonchi, no rales , no accessory muscle use Abdominal: soft, nontender to palpation, no guarding, no appreciable organomegaly Ext: no gross muscle atrophy, no edema, no contractures Neuro: CN II-XI grossly intact, no focal neuro deficits Psych: Alert, oriented, appropriate affect, anxious appearing A total of 31 minutes of time were spent preparing this complex discharge summary. Patient was discharged on 09/28/22 at 15:25. Patient Condition at Discharge: Stable Plan - Discharge Summary Discharge Rx Participant: Yes New Discharge Prescriptions: New Divalproex [Depakote] 250 mg PO BID tab traZODone HCL [Desyrel] 50 mg PO HS tab Acetaminophen Tab [Tylenol] 650 mg PO Q4HR PRN tab PRN Reason: Fever And/Or Mild Pain Discharge Medication List Acetaminophen Tab [Tylenol] 650 mg PO Q4HR PRN tab 09/28/22 [Rx] Divalproex [Depakote] 250 mg PO BID tab 09/28/22 [Rx] traZODone HCL [Desyrel] 50 mg PO HS tab 09/28/22 [Rx] Patient Instructions/Handouts: Depression (ED), Help Prevent Suicide (ED), Suicide Prevention (ED) Discharge Disposition: TRANSFER TO PSYCH HOSP/UNIT
[2022-09-28 17:52] VITALS: BP 106/72; PULSE 64; TEMP 97.6
--- NOTE | 2022-09-29 02:59 | EEG ---
ELECTROENCEPHALOGRAM REPORT DATE OF SERVICE: 09/27/2022. CLINICAL HISTORY: This is a 27-year-old gentleman who had episode of tremor and confusion while at the psych unit. The video EEG is obtained to evaluate for seizure epileptiform activity. RELEVANT MEDICATION: The patient is on Depakote. EEG TYPE: A routine 21-channel EEG is performed with video using the 10/20 electrode system. DESCRIPTION: Wakefulness is only obtained. During awake state, the posterior-dominant rhythm consists of low to moderate voltage of 9 to 10 hertz is well modulated and sustained. There is no physiological sleep architecture seen. There is no focal slowing. Interictal and ictal is none. ACTIVATION PROCEDURE: Photic stimulation did not evoke a posterior driving response. There is no abnormality during the photic stimulation. Hyperventilation is not performed. CLINICAL INTERPRETATION: This is a normal routine EEG. There is no focal slowing, epileptiform discharge or seizure on the EEG. A normal routine EEG did not exclude epilepsy. Clinical correlation is recommended. MMSARAHY / TROYN: [id number] /
== END 2022-09-28 17:25 | disposition still patient (30) | DRG 92 ==
LOC: 2SICU 02:15
PROVIDERS: ADMIT Internal Medicine; ATTEND Internal Medicine
PROC: 4A10X4Z Monitoring of Central Nervous Electrical Activity, External Approach (ICD-10-PCS; principal; 2022-09-28)
DX: G92.8 Other toxic encephalopathy (principal); R45.851 Suicidal ideations; F20.9 Schizophrenia, unspecified; F41.9 Anxiety disorder, unspecified; F17.210 Nicotine dependence, cigarettes, uncomplicated; Z71.6 Tobacco abuse counseling; F90.9 Attention-deficit hyperactivity disorder, unspecified type; R56.9 Unspecified convulsions; F31.9 Bipolar disorder, unspecified; R09.02 Hypoxemia; G47.00 Insomnia, unspecified; I10 Essential (primary) hypertension; Z79.899 Other long term (current) drug therapy
CPT/HCPCS: 80048; 83735; 85025; 95816

== ENCOUNTER 2022-09-28 16:25 | Inpatient (IN) | payer MEDICAID ==
[2022-09-28] MEDS ORDERED: ACETAMINOPHEN TAB 325 MG TAB PO PRN (17:22)
[2022-09-28] MEDS ORDERED: MAGNESIUM HYDROXIDE 2,400 MG/10 ML CUP PO PRN (17:23)
[2022-09-28] MEDS ORDERED: LORazepam 1 MG/0.5 ML VIAL IM PRN (17:25)
[2022-09-28] MEDS: DIVALPROEX 250 MG TABLET.DR PO SCH (20:03)
[2022-09-28] MEDS: traZODone HCL 50 MG TAB PO SCH (20:03)
[2022-09-28] MEDS: NICOTINE 14MG/24HR PATCH TRANSDERM SCH (22:23)
[2022-09-28] MEDS: LORazepam 1 MG TAB PO PRN (23:22)
[2022-09-29] MEDS: MAG HYDROX/AL HYDROX/SIMETH 30 ML CUP PO PRN (07:47)
[2022-09-29] MEDS: NICOTINE 14MG/24HR PATCH TRANSDERM SCH (07:47)
[2022-09-29] MEDS: DIVALPROEX 250 MG TABLET.DR PO SCH ×2 (07:47→19:57)
[2022-09-29] MEDS ORDERED: NICOTINE 14MG/24HR PATCH TRANSDERM SCH (09:00)
[2022-09-29] MEDS ORDERED: flUPHENAZine 2.5 MG/ML (MDV) 10 ML VIAL IM PRN (12:20)
[2022-09-29] MEDS: LORazepam 1 MG TAB PO PRN ×3 (12:39→22:17)
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
[2022-09-29] MEDS: ZIPRASIDONE 20 MG VIAL IM STA ×2 (13:21→15:43)
[2022-09-29] MEDS ORDERED: chlorproMAZINE 25 MG/ML 2 ML AMP IM PRN (15:00)
--- NOTE | 2022-09-29 16:01 | P.PN ---
Progress Note - Text Progress Note Date: 09/29/22 Attempted to evaluate the patient, but told by the nurse that he is aggressive towards the staff at the moment. Please reach out once patient is more stable for medical evaluation.
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
[2022-09-29] MEDS: hydrOXYzine pamoate 25 MG CAP PO PRN (19:56)
[2022-09-29] MEDS: traZODone HCL 50 MG TAB PO SCH (19:57)
[2022-09-29] MEDS: PALIPERIDONE 3 MG TAB.ER.24 PO SCH (19:57)
[2022-09-29] MEDS ORDERED: PALIPERIDONE 3 MG TAB.ER.24 PO SCH (21:00)
[2022-09-30] MEDS: NICOTINE 14MG/24HR PATCH TRANSDERM SCH (08:52)
[2022-09-30] MEDS: DIVALPROEX 250 MG TABLET.DR PO SCH (08:53)
[2022-09-30] MEDS: PALIPERIDONE 3 MG TAB.ER.24 PO SCH (08:53)
--- NOTE | 2022-09-30 10:31 | P.PN ---
Progress Note - Text Progress Note Date: 09/30/22 Interval History: Patient was seen wandering the hallways and was directable and agreeable to sp guy with group underwriter. Patient apologized to group underwriter yesterday about slamming the door and also "getting upset". He states that "sometimes I can't control it". He claims that today he is doing a bit better and appears to be calmer during conversation. He states that he has been tolerating the medication well so far and feels that it is helping him. He is agreeable to continue on with treatment. He states that the voices are "a bit better" however he is still having some suicidal thoughts at this time however no intent or plan. Denying any homicidal ideations. He states that he is eating fairly and going to some groups. Patient denies any visual hallucinations and denies any paranoia or delusions. Patient denies any side effects from the medications and has been compliant with meds. Mental Status Exam: General Appearance: Patient appears to be has several tattoos, shorter hair, stated age is alert, initially directable however is irritable and impulsive. Patient appears to have improving hygiene and grooming Behavior: Patient is seated without any agitated behavior. Impulsive, improving mildly Speech: Patient's speech is fluent and nonpressured. Mood/Affect: Patient reports their mood is depressed however improving mildly, affect is congruent and constricted. Suicidality/Homicidality: Patient denies having any homicidal ideation intent or plan. Claims that he is feeling suicidal, no intent or plan, improving Perceptions: Patient things that he is hearing voices however these are improving, no visual hallucinations. Though content/process: There is no evidence of any delusional thought content and thought process is linear and goal-directed. Apologetic. Memory and concentration: AOX3, grossly intact for the purposes of this session. Can spell "WORLD" backwards Judgment and insight: poor, improving mildly IMPRESSIONS: Schizoaffective disorder Cluster B personality disorder Nicotine dependence Plan: -Patient continues to meet criteria for inpatient psychiatric admission for symptom stabilization and safety. Patient has signed adult voluntary form and medication consent and was placed in patient's chart. -Medications: increase paliperidone by mouth 3 mg daily + 6 mg qhs for mood stabilization/psychosis, increase/change Depakote ER to 1000 mg qhs for mood stabilization/aggression. Trazodone 50 mg daily at bedtime for insomnia/mood. vistaril 50 mg tid prn for anxiety -When necessary Ativan thorazine and prolixin IM and PO for agitation/aggression. -NRT - nicotine patch -SW on board for discharge planning. Encouraged the patient to participate in [facility]. patient is a skilled nursing hold.
[2022-09-30] MEDS: LORazepam 1 MG TAB PO PRN ×2 (10:41→16:55)
[2022-09-30] MEDS: chlorproMAZINE 25 MG TAB PO PRN (11:50)
[2022-09-30] MEDS: hydrOXYzine pamoate 25 MG CAP PO PRN ×2 (14:39→19:39)
[2022-09-30] MEDS: traZODone HCL 50 MG TAB PO SCH (19:40)
[2022-09-30] MEDS ORDERED: PALIPERIDONE 6 MG TAB.ER.24 PO SCH (21:00)
[2022-09-30] MEDS ORDERED: DIVALPROEX ER 500 MG TAB.ER.24H PO SCH (21:00)
--- NOTE | 2022-10-01 00:39 | P.CONS ---
History of Present Illness - Reason for Consult Consult date: 09/30/22 - History of Present Illness The patient is a 27-year-old male with a PMH of psychiatric illnesses was brought to the hospital under police custody for reported suicidal ideation while at retirement. The patient was initially admitted to the mental health unit where he was subsequently found to be lethargic and hypoxic and was subsequently transferred to the medicine service for concerns of impending respiratory fa ilure. The patient underwent workup by neurology and commissioned police officer and was subsequently cleared for discharge back to mental health unit. The patient earlier today was found attempting to hang himself by a door handle in the hallway on the mental health unit. At time of examination, the patient had received sedatives and was resting comfortably in bed. He reported feeling okay and denied any active complaints. He was lethargic however and thereby history was limited. The patient was reportedly trying to hang himself by tying his pants to a door handle. Review of systems: Pertinent positives and negatives as discussed in HPI, a complete review of systems was performed and all other systems are negative. Physical examination: General: non toxic, no distress, appears at stated age, normal weight Derm: Mild circumferential neck redness, no unusual rashes/lesions, no unusual ecchymoses, warm, dry Head: atraumatic, normocephalic, symmetric Eyes: EOMI, no lid lag, anicteric sclera ENT: Nose and ears atraumatic, no thrush, no pharyngeal erythema Neck: trachea midline, supple Mouth: no lip lesion, mucus membranes moist Cardiovascular: S1S2 reg, no murmur, no edema Lungs: CTA bilateral, no rhonchi, no rales , no accessory muscle use Abdominal: soft, nontender to palpation, no guarding Ext: no gross muscle atrophy, no contractures, Neuro: No gross focal neuro deficits noted Psych: Lethargic, oriented to person, place, and time Assessment/plan Minimal neck skin erythema -Patient had denied neck pain -Continue with close suicide precautions -Defer to primary psychiatric service Thank you for allowing us to participate in the care of this patient. We will follow peripherally. Do not hesitate to contact us with questions. Someone can be reached from the [facility] hospitalist group at all hours of the day at [phone]. Past Medical History Past Medical History: Hypertension Additional Past Medical History / Comment(s): Gastritis, Pancreatitis, nate- short syndrome, angina History of Any Multi-Drug Resistant Organisms: None Reported Past Surgical History: No Surgical Hx Reported Past Anesthesia/Blood Transfusion Reactions: No Reported Reaction Past Psychological History: ADD/ADHD, Anxiety, Bipolar, Depression, Schizophrenia Additional Psychological History / Comment(s): Patient states that he has had 13 past suicidal attempts. Smoking Status: Current every day smoker Past Alcohol Use History: Occasional Additional Past Alcohol Use History / Comment(s): Patient states that he drinks 3 beers no more than 2 times a month. Past Drug Use History: None Reported Additional Drug Use History / Comment(s): Patient states that he uses CBD products. - Past Family History Mother Family Medical History: Hyperlipidemia Father Family Medical History: Chest Pain / Angina Additional Family Medical History / Comment(s): Heart murmmur Medications and Allergies Home Medications Medication Instructions Recorded Confirmed Type Acetaminophen Tab [Tylenol] 650 mg PO Q4HR PRN tab 09/28/22 09/28/22 Rx Divalproex [Depakote] 250 mg PO BID tab 09/28/22 09/28/22 Rx traZODone HCL [Desyrel] 50 mg PO HS tab 09/28/22 09/28/22 Rx Allergies Allergy/AdvReac Type Severity Reaction Status Date / Time codeine Allergy Rash/Hives Verified 09/28/22 15:24 fentanyl Allergy Rash/Hives Verified 09/28/22 15:24 haloperidol Allergy tremors, Verified 09/28/22 15:24 difficulty breathing Physical Exam Vitals: Vital Signs Temp Pulse Resp BP Pulse Ox 09/30/22 06:48 97.7 F 80 14 109/58 99
[2022-10-01] MEDS: NICOTINE 14MG/24HR PATCH TRANSDERM SCH (07:43)
[2022-10-01] MEDS: MAG HYDROX/AL HYDROX/SIMETH 30 ML CUP PO PRN (07:44)
[2022-10-01] MEDS ORDERED: PALIPERIDONE 3 MG TAB.ER.24 PO SCH (09:00)
[2022-10-01] MEDS: LORazepam 1 MG TAB PO PRN ×2 (09:02→17:24)
[2022-10-01] MEDS: DIVALPROEX ER 500 MG TAB.ER.24H PO SCH ×2 (11:59→20:06)
[2022-10-01] MEDS: ARIPiprazole 10 MG TAB PO SCH (11:59)
--- NOTE | 2022-10-01 12:43 | P.PN ---
Progress Note - Text Progress Note Date: 10/01/22 Interval History: Patient was seen wandering the hallways and was directable and agreeable to payton tovar with automatic typewriter inspector. Patient was seen in a hospital gown and has a one-to-one sitter at this time. Patient apparently had a suicide attempt yesterday where he attempted to wrap his shirt around a door handle and also a sock and attempted to hang himself. He did this at the [employer] store. He claims that he is "sorry about that" and claims that "I won't do that again". He appears to be fairly calm today during conversation and directable. He continues to be concrete. He states that "I was upset that my mother did not answer the phone". This caused him to feel suicidal. He states that at this time he is not feeling suicidal. He claims that he slept better last night. He states that the voices are "a bit better". Denying any homicidal ideations. He states that he is eating fairly and going to some groups. Patient denies any visual hallucinations and denies any paranoia or delusions. Patient denies any side effects from the medications and has been compliant with meds. Mental Status Exam: General Appearance: Patient appears to be has several tattoos, shorter hair, stated age is alert, initially directable however is irritable and impulsive. Patient appears to have improving hygiene and grooming Behavior: Patient is seated without any agitated behavior. Impulsive Speech: Patient's speech is fluent and nonpressured. Mood/Affect: Patient reports their mood is depressed however improving mildly, affect is congruent and constricted. Suicidality/Homicidality: Patient denies having any homicidal ideation intent or plan. Claims that he is feeling less suicidal, no intent or plan, improving Perceptions: Patient denies any AH, no visual hallucinations. Though content/process: There is no evidence of any delusional thought content and thought process is linear and goal-directed. Apologetic. Memory and concentration: AOX3, grossly intact for the purposes of this session Judgment and insight: poor/impulsive IMPRESSIONS: Schizoaffective disorder Cluster B personality disorder Nicotine dependence Plan: -Patient continues to meet criteria for inpatient psychiatric admission for symptom stabilization and safety. Patient has signed adult voluntary form and medication consent and was placed in patient's chart. -Medications: patient requested to be put back on abilify as he tolerated and did well on it in the past. Start Abilify PO 10 mg daily for mood stabiliza tion/psychosis, change Depakote ER to 500 mg BID for mood stabilization/aggression. Trazodone 50 mg daily at bedtime for insomnia/mood. vistaril 50 mg tid prn for anxiety -When necessary Ativan thorazine and prolixin IM and PO for agitation/aggression. -continue with suicide precautions, 1:1 sitter and finger foods. -NRT - nicotine patch -SW on board for discharge planning. Encouraged the patient to participate in milieu. patient is a retirement hold.
[2022-10-01] MEDS: traZODone HCL 50 MG TAB PO SCH (20:06)
[2022-10-01] MEDS: hydrOXYzine pamoate 25 MG CAP PO PRN (20:07)
[2022-10-02] MEDS: ARIPiprazole 10 MG TAB PO SCH (07:48)
[2022-10-02] MEDS: DIVALPROEX ER 500 MG TAB.ER.24H PO SCH ×2 (07:48→19:59)
[2022-10-02] MEDS: NICOTINE 14MG/24HR PATCH TRANSDERM SCH (07:48)
[2022-10-02] MEDS: hydrOXYzine pamoate 25 MG CAP PO PRN ×2 (07:48→15:19)
--- NOTE | 2022-10-02 10:38 | P.PN ---
Progress Note - Text Progress Note Date: 10/02/22 Interval History: Patient was seen wandering the hallways and was directable and agreeable to sp guy with communications writer. Patient appears to have improvement in his impulse control today. He states that he is doing better with regards to the medications. He states that "I don't feel the voices trying to control me anymore". He states that the voices have calmed down. He claims that he is tolerating the Abilify fairly well. He claims that he feels more stable with the medication at this time. He is denying any depression or anxiety. He states that he is agreeable to take the long-acting injection if required. He was asking to get off of the 1:1 sitter. He continues to be concrete. He was not endorsing any delusions or paranoia today. Claims that he slept fairly last night with the trazodone. Denying any homicidal ideations and denying any suicidal ideations intent or plan. He states that he is eating fairly and going to some groups. Patient denies any visual hallucinations. Patient denies any side effects from the medications and has been compliant with meds. Mental Status Exam: General Appearance: Patient appears to be has several tattoos, shorter hair, stated age is alert, calm and directable. Patient appears to have improving hygiene and grooming Behavior: Patient is seated without any agitated behavior. less Impulsive Speech: Patient's speech is fluent and nonpressured. Soft tone. Mood/Affect: Patient reports their mood is improving mildly, affect is congruent and constricted. Suicidality/Homicidality: Patient denies having any homicidal ideation intent or plan. Denies any suicidal thoughts, no intent or plan Perceptions: Patient denies any AH, no visual hallucinations. Though content/process: There is no evidence of any delusional thought content and thought process is linear and goal-directed. Apologetic. Memory and concentration: AOX3, grossly intact for the purposes of this session Judgment and insight: Chronic limited, improving mildly. IMPRESSIONS: Schizoaffective disorder Cluster B personality disorder Nicotine dependence Plan: -Patient continues to meet criteria for inpatient psychiatric admission for symptom stabilization and safety. Patient has signed adult voluntary form and medication consent and was placed in patient's chart. -Medications: Increase Abilify PO 15 mg daily for mood stabilization/psychosis, likely give GRIFFITH on wednesday. Depakote ER to 500 mg BID for mood stabilization/aggression. Trazodone 50 mg daily at bedtime for insomnia/mood. vistaril 50 mg tid prn for anxiety -When necessary Ativan thorazine and prolixin IM and PO for agitation/aggression. -continue with suicide precautions, 1:1 sitter and finger foods. -NRT - nicotine patch -SW on board for discharge planning. Encouraged the patient to participate in milieu. patient is a residential hold. likely discharge early next week after GRIFFITH.
[2022-10-02] MEDS: LORazepam 1 MG TAB PO PRN (12:58)
[2022-10-02] MEDS: traZODone HCL 50 MG TAB PO SCH (19:59)
[2022-10-02] MEDS: chlorproMAZINE 25 MG TAB PO PRN (20:46)
[2022-10-03] MEDS: LORazepam 1 MG TAB PO PRN ×2 (07:26→12:58)
[2022-10-03] MEDS: NICOTINE 14MG/24HR PATCH TRANSDERM SCH (08:22)
[2022-10-03] MEDS: ARIPiprazole 15 MG TAB PO SCH (08:22)
[2022-10-03] MEDS: DIVALPROEX ER 500 MG TAB.ER.24H PO SCH ×2 (08:22→19:58)
[2022-10-03] MEDS: chlorproMAZINE 25 MG TAB PO PRN (10:29)
[2022-10-03] MEDS: hydrOXYzine pamoate 25 MG CAP PO PRN (10:30)
--- NOTE | 2022-10-03 19:17 | P.PN ---
Progress Note - Text Progress Note Date: 10/03/22 Interval history: Patient was initially directable and agreeable to speak with bid writer. He reports good mood, but objectively appears depressed with irritable edge. His thought process consists of thought distortions and he quickly becomes antagonistic unprovoked. He reports he had a seizure last weekend, however records reviewed and his EEG was normal, lactic acid level was normal, and neurology consult reports it was unlikely a seizure. He believes it was from the medications he received, however he had admitted to similar shaking spells in the past, and the episode was most likely a pseudoseizure or psychogenic nonepileptic spell. He also claims the treatment team lied about his drug use and he does not use drugs, however his UDS from 09/27/22 is positive for THC. He is not receptive to psychoeducation and opts to end the assessment and abruptly leaves the room. He is compliant with his medications currently and does not report side effects currently. Mental status exam: General Appearance: Patient appears to be stated age, tattoos, improved hygiene. Behavior: No agitated behavior. He becomes antagonistic unprovoked and abruptly ends assessment, does not respond to psychoeducation, appears mistrusting. Speech: Patient's speech is fluent and non-pressured. Mood/Affect: Mood is "good", affect is mood incongruent, depressed and constricted. Suicidality/Homicidality: Unable to fully assess due to his lack of cooperation. Perceptions: Unable to fully assess due to his lack of cooperation. Thought process: Somewhat argumentative, otherwise linear. Thought content: There is evidence of thought distortions and likely stress- related paranoia. Memory and concentration: AOX3, grossly intact for the purposes of this session Judgment and insight: chronically poor, improving mildly Assessment/Plan: Continue with current diagnosis. Patient continues to meet criteria for inpatient psychiatric admission for symptom stabilization and safety. Patient will be maintained on current psychotropic medication regimen. Monitor for medication compliance and for any psychotropic medication side effects. Will continue to monitor ongoing response to treatment. Encouraged participation in milieu.
[2022-10-03] MEDS: traZODone HCL 50 MG TAB PO SCH (19:58)
[2022-10-04 06:51] VITALS: RESP 16
[2022-10-04] MEDS: MAG HYDROX/AL HYDROX/SIMETH 30 ML CUP PO PRN (07:22)
[2022-10-04] MEDS: ARIPiprazole 15 MG TAB PO SCH (07:55)
[2022-10-04] MEDS: NICOTINE 14MG/24HR PATCH TRANSDERM SCH (07:55)
[2022-10-04] MEDS: DIVALPROEX ER 500 MG TAB.ER.24H PO SCH ×2 (07:55→20:09)
[2022-10-04] MEDS: LORazepam 1 MG TAB PO PRN (14:46)
[2022-10-04] MEDS: chlorproMAZINE 25 MG TAB PO PRN (17:01)
[2022-10-04] MEDS: traZODone HCL 50 MG TAB PO SCH (20:09)
--- NOTE | 2022-10-04 22:03 | P.PN ---
Progress Note - Text Progress Note Date: 10/04/22 Interval history: Patient was seen attending group and initially declined request to be evaluated by this data analyst report writer. He continues to demonstrate staff splitting, thought distortions and some mood lability. He requested to be seen later, and was seen with a nurse present to minimize splitting behaviors. He is compliant with his medications currently and does not report side effects currently. He denies SI/HI, intent or plan. He denies auditory or visual hallucinations. Mental status exam: General Appearance: Patient appears to be stated age, tattoos, improved hygiene. Behavior: No agitated behavior, however staff splitting is observed. Speech: Patient's speech is fluent and non-pressured. Mood/Affect: Mood is improving mildly, affect is mood congruent and constricted. Suicidality/Homicidality: He denies SI/HI, intent or plan. Perceptions: He denies auditory or visual hallucinations. Thought process: Somewhat argumentative, otherwise linear. Thought content: There is evidence of thought distortions and likely stress- related paranoia. Memory and concentration: AOX3, grossly intact for the purposes of this session Judgment and insight: chronically poor, improving mildly Assessment/Plan: Continue with current diagnosis. Patient continues to meet criteria for inpatient psychiatric admission for symptom stabilization and safety. Patient will be maintained on current psychotropic medication regimen. He would benefit from DBT therapy following discharge. Monitor for medication compliance and for any psychotropic medication side effects. Will continue to monitor ongoing response to treatment. Encouraged participation in milieu.
[2022-10-05] MEDS: LORazepam 1 MG TAB PO PRN ×2 (05:24→14:46)
[2022-10-05] MEDS: ARIPiprazole 15 MG TAB PO SCH (09:07)
[2022-10-05] MEDS: DIVALPROEX ER 500 MG TAB.ER.24H PO SCH (09:07)
[2022-10-05] MEDS: NICOTINE 14MG/24HR PATCH TRANSDERM SCH (09:07)
[2022-10-05] MEDS: hydrOXYzine pamoate 25 MG CAP PO PRN (10:40)
[2022-10-05] MEDS ORDERED: LORazepam 1 MG TAB PO PRN (15:59)
[2022-10-05] MEDS ORDERED: PROPRANOLOL 20 MG TAB PO PRN (16:00)
--- NOTE | 2022-10-05 16:16 | P.PN ---
Progress Note - Text Progress Note Date: 10/05/22 Interval History: Patient was seen wandering the hallways and was directable and agreeable to sp eak with telegraphic typewriter repairer. Patient continues again to be more appropriate with telegraphic typewriter repairer during conversation. He states that he has been going to groups and participating. He states that he did have a "outbursts" earlier this morning when he felt anxious. He states that he does have some anxiety during the day mainly in the morning before he takes his medications. He states that he wasn't trying to remain optimistic. He is denying any depression at this time. Claims that his appetite has been improving. He states that he is agreeable to take the long-acting injection today. He was not endorsing any delusions or paranoia today. Claims that he slept fairly last night with the trazodone. Denying any homicidal ideations and denying any suicidal ideations intent or plan. Patient denies any visual hallucinations. Patient denies any side effects from the medications and has been compliant with meds. Mental Status Exam: General Appearance: Patient appears to be has several tattoos, shorter hair, stated age is alert, calm and directable. Patient appears to have improving hygiene and grooming Behavior: Patient is seated without any agitated behavior. less Impulsive Speech: Patient's speech is fluent and nonpressured. Soft tone. Mood/Affect: Patient reports their mood is improving mildly, affect is congruent and constricted. Suicidality/Homicidality: Patient denies having any homicidal ideation intent or plan. Denies any suicidal thoughts, no intent or plan Perceptions: Patient denies any AH, no visual hallucinations. Though content/process: There is no evidence of any delusional thought content and thought process is linear and goal-directed. [place] Memory and concentration: AOX3, grossly intact for the purposes of this session Judgment and insight: Chronic limited, improving mildly. IMPRESSIONS: Schizoaffective disorder Cluster B personality disorder Nicotine dependence Plan: -Patient continues to meet criteria for inpatient psychiatric admission for symptom stabilization and safety. Patient has signed adult voluntary form and medication consent and was placed in patient's chart. -Medications: Abilify PO 15 mg daily for mood stabilization/psychosis, will give Abilify Maintenna 400 mg IM today. Depakote ER to 750 mg BID for mood stabilization/aggression. Trazodone 50 mg daily at bedtime for insomnia/mood. vistaril 50 mg tid prn for anxiety. added propranolol 20 mg tid prn for akithesia/anxiety. -When necessary Ativan thorazine and prolixin IM and PO for agitation/aggression. -NRT - nicotine patch -SW on board for discharge planning. Encouraged the patient to participate in milieu. patient is a [facility] hold. likely discharge tomorrow
[2022-10-05] MEDS ORDERED: ARIPiprazole IM SYRINGE 400 MG (NO CHARGE) PHARMACY STOCK IM ONE (16:30)
[2022-10-05 19:23] VITALS: BP 136/86; PULSE 98; TEMP 98.1
[2022-10-05] MEDS: traZODone HCL 50 MG TAB PO SCH (20:32)
[2022-10-05] MEDS: DIVALPROEX ER 250 MG TAB.ER.24H PO SCH (20:32)
[2022-10-06] MEDS: MAG HYDROX/AL HYDROX/SIMETH 30 ML CUP PO PRN (05:51)
[2022-10-06] MEDS: DIVALPROEX ER 250 MG TAB.ER.24H PO SCH (07:49)
[2022-10-06] MEDS: NICOTINE 14MG/24HR PATCH TRANSDERM SCH (07:49)
[2022-10-06] MEDS: ARIPiprazole 15 MG TAB PO SCH (07:49)
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
== END 2022-10-06 12:40 | DRG 885 ==
LOC: 3MHU 16:27
PROVIDERS: ADMIT Psychiatry & Neurology Psychiatry; ATTEND Psychiatry & Neurology Psychiatry
DX: F25.9 Schizoaffective disorder, unspecified (principal); R45.851 Suicidal ideations; F60.89 Other specific personality disorders; X83.8XXA Intentional self-harm by other specified means, initial encounter; Y92.238 Other place in hospital as the place of occurrence of the external cause; F17.210 Nicotine dependence, cigarettes, uncomplicated; F31.9 Bipolar disorder, unspecified; F43.10 Post-traumatic stress disorder, unspecified; F90.9 Attention-deficit hyperactivity disorder, unspecified type; G47.00 Insomnia, unspecified; I10 Essential (primary) hypertension; R45.4 Irritability and anger; R45.850 Homicidal ideations; Z62.810 Personal history of physical and sexual abuse in childhood; Z62.811 Personal history of psychological abuse in childhood; Z91.14 Patient's other noncompliance with medication regimen; F41.9 Anxiety disorder, unspecified; Z88.5 Allergy status to narcotic agent; Z88.6 Allergy status to analgesic agent; Z88.8 Allergy status to other drugs, medicaments and biological substances; Z79.899 Other long term (current) drug therapy; Z59.00 Homelessness unspecified; Z91.51 Personal history of suicidal behavior; Y08.89XD Assault by other specified means, subsequent encounter

== ENCOUNTER 2022-10-27 13:54 | Inpatient (IN) | payer MEDICAID, OTHER ==
--- NOTE | 2022-10-27 18:55 | XR ---
EXAMINATION TYPE: XR hand complete LT DATE OF EXAM: 10/27/2022 COMPARISON: NONE HISTORY: Left hand pain TECHNIQUE: 3 view FINDINGS: Metacarpals are intact. The fingers are intact. I see no fracture nor dislocation. The join t spaces are fairly normal. IMPRESSION: Negative left hand exam. No fracture.
[2022-10-27 20:06] LABS: Amphetamine Screen,Urine Not Detected (NotDetected); Barbiturate Screen,Urine Not Detected (NotDetected); Benzodiazepines Screen,Urine Not Detected (NotDetected); Cocaine Screen,Urine Not Detected (NotDetected); Methadone Screen, Urine Not Detected (NotDetected); Opiate Screen,Urine Not Detected (NotDetected); Oxycodone Screen, Urine Not Detected (NotDetected); Phencyclidine Screen,Urine Not Detected (NotDetected); Tricyclic Antidepressant,Urine Not Detected (NotDetected); Urn Cannabinoid Scrn Detected (NotDetected)
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
[2022-10-27] MEDS ORDERED: ACETAMINOPHEN TAB 325 MG TAB PO PRN (23:57)
[2022-10-28] MEDS ORDERED: PROPRANOLOL 20 MG TAB PO PRN (01:00)
[2022-10-28] MEDS ORDERED: LORazepam 2 MG/ML INJ IM PRN (01:00)
[2022-10-28] MEDS ORDERED: traZODone HCL 50 MG TAB PO SCH ×2 (01:07→21:00)
[2022-10-28] MEDS: LORazepam 1 MG TAB PO PRN ×2 (01:31→13:38)
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
[2022-10-28 07:41] LABS: Basophils # (A) 0.1 k/uL (0-0.2); Basophils % (A) 1 %; Eosinophils # (A) 0.4 k/uL (0-0.7); Eosinophils % (A) 5 %; HCT 42.2 % (39.0-53.0); HGB 14.4 gm/dL (13.0-17.5); Lymphocytes # (A) 3.2 k/uL (1.0-4.8); Lymphocytes % (A) 37 %; MCH 31.2 pg (25.0-35.0); MCHC 34.1 g/dL (31.0-37.0); MCV 91.4 fL (80.0-100.0); Mean Platelet Volume 8.6; Monocytes # (A) 0.5 k/uL (0-1.0); Monocytes % (A) 6 %; Neutrophils # (A) 4.2 k/uL (1.3-7.7); Neutrophils % (A) 49 %; Platelet Count 245 k/uL (150-450); RBC 4.62 m/uL (4.30-5.90); RDW 12.4 % (11.5-15.5); WBC 8.6 k/uL (3.8-10.6)
[2022-10-28] MEDS: NICOTINE 14MG/24HR PATCH TRANSDERM SCH (07:52)
[2022-10-28] MEDS: DIVALPROEX ER 250 MG TAB.ER.24H PO SCH ×2 (07:52→21:00)
[2022-10-28] MEDS ORDERED: MAG HYDROX/AL HYDROX/SIMETH 355 ML BOTTLE PO PRN (08:00)
[2022-10-28] MEDS ORDERED: MAGNESIUM HYDROXIDE 2,400 MG/10 ML CUP PO PRN (09:00)
[2022-10-28 09:12] LABS: AST 22 U/L (17-59); African American GFR (CKD) >90 (>60 ml/min/1.73 sqM); Albumin 3.8 g/dL (3.5-5.0); Blood Urea Nitrogen 14 mg/dL (9-20); Carbon Dioxide 27 mmol/L (22-30); Chloride 107 mmol/L (98-107); Glucose 100 mg/dL (74-99); Non-African American GFR(CKD) >90 (>60 ml/min/1.73 sqM); Potassium 4.9 mmol/L (3.5-5.1); Total Bilirubin 0.3 mg/dL (0.2-1.3); Total Protein 6.2 g/dL (6.3-8.2)
[2022-10-28] MEDS: hydrOXYzine pamoate 25 MG CAP PO PRN (09:29)
[2022-10-28 09:52] LABS: ALT 23 U/L (4-49); Alkaline Phosphatase 80 U/L (38-126); Anion Gap 6 mmol/L; Calcium 8.9 mg/dL (8.4-10.2); Sodium 140 mmol/L (137-145)
[2022-10-28 10:07] LABS: Valproic Acid (Depakene) 12.3 ug/mL
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
[2022-10-28] MEDS: ARIPiprazole 10 MG TAB PO SCH (10:57)
[2022-10-28] MEDS: flUPHENAZine 2.5 MG/ML (MDV) 10 ML VIAL IM PRN (17:06)
[2022-10-28] MEDS ORDERED: traZODone HCL 100 MG TAB PO SCH (21:00)
--- NOTE | 2022-10-29 00:01 | P.PN ---
Progress Note - Text Progress Note Date: 10/28/22 Attempted to see the patient on the mental health unit at 2200 on 10/28. Informed by the mental health unit RN that the patient was sedated and inappropriate for evaluation.
[2022-10-29] MEDS: LORazepam 1 MG TAB PO PRN (06:20)
[2022-10-29] MEDS ORDERED: ARIPiprazole IM 400 MG VIAL (NO COST) PHARMACY STOCK IM ONE (09:00)
[2022-10-29] MEDS: NICOTINE 14MG/24HR PATCH TRANSDERM SCH (10:02)
[2022-10-29] MEDS: DIVALPROEX ER 250 MG TAB.ER.24H PO SCH ×2 (10:02→20:24)
[2022-10-29] MEDS: ARIPiprazole 10 MG TAB PO SCH (10:02)
[2022-10-29] MEDS: flUPHENAZine 2.5 MG/ML (MDV) 10 ML VIAL IM PRN (14:11)
--- NOTE | 2022-10-29 14:23 | P.PN ---
Progress Note - Text Progress Note Date: 10/29/22 Interval History: Patient was seen lying in his bed today with the sheets covering his head and was directable and agreeable to speak with process description writer in the office. Patient continues to be appropriate with process description writer and speak in a calm voice. He states that he is feeling "very tired" today. He claims that one of the medications he took earlier today "knocks me out". He states that he doesn't have much energy today and skipped his meals. He claims that he slept fairly last night. He claims that he is having intermittent episodes of anxiety and took a Vistaril and also Ativan earlier. He claims that he is feeling bored on the unit. Patient took the Abilify Maintenna injection today and tolerated it well. At this time patient denies any suicidal or homical ideations, intent or plan. Patient denies any auditory, visual hallucinations and denies any paranoia or delusions. Patient denies any side effects from the medications and has been compliant with meds. Mental Status Exam: General Appearance: Patient appears to be has several tattoos, shorter hair, stated age is alert, directable and polite. Patient appears to have fair hygiene and grooming. Behavior: Patient is seated without any agitated behavior. Impulsive yet is polite and directable. Speech: Patient's speech is fluent and nonpressured. Mood/Affect: Patient reports their mood is improving mildly, affect is congruent and constricted. Suicidality/Homicidality: Patient denies having any homicidal ideation intent o r plan. Claims that he is feeling suicidal, no intent or plan. Perceptions: Patient things that he is hearing voices of voices telling him to harm himself and others, no visual hallucinations. Though content/process: There is no evidence of any delusional thought content and thought process is linear and goal-directed. Focused on his medications. Memory and concentration: AOX3, grossly intact for the purposes of this session Judgment and insight: poor, improving mildly IMPRESSIONS: Schizoaffective disorder, bipolar type Cluster B personality disorder Cannabis use disorder Nicotine dependence Plan: -Patient continues to meet criteria for inpatient psychiatric admission for symptom stabilization and safety. Patient has not signed adult voluntary form and medication consent and was placed in patient's chart. -Medications: abilify PO 10 mg daily for mood stabilization/psychosis, given Abilifcheryl Maintenna 400 mg IM today, continue with Depakote 750 mg twice a day for mood stabilization/aggression. decrease Trazodone 50 mg daily at bedtime for insomnia/mood. vistaril prn for anxiety and inderal prn for akithesia/anxiety. decreased prn ativan to 1mg dose -When necessary Ativan and Prolixin for agitation/aggression. -NRT - nicotine patch -SW on board for discharge planning. Encouraged the patient to participate in milieu. likely discharge in 2-3 days.
[2022-10-29] MEDS: traZODone HCL 50 MG TAB PO SCH (20:24)
[2022-10-30] MEDS: ARIPiprazole 10 MG TAB PO SCH (08:02)
[2022-10-30] MEDS: NICOTINE 14MG/24HR PATCH TRANSDERM SCH (08:02)
[2022-10-30] MEDS: DIVALPROEX ER 250 MG TAB.ER.24H PO SCH ×2 (08:02→21:46)
--- NOTE | 2022-10-30 12:03 | P.PN ---
Progress Note - Text Progress Note Date: 10/30/22 Interval History: Patient was seen wandering the hallways today and was able to speak to senior mortgage underwriter in the office. Patient continues to be appropriate with senior mortgage underwriter and speak in a calm voice and was concrete and appropriate during conversation. Patient had an incident yesterday where he slept through his lunch and was told that he was not able to have it as the food was taken away. At that time according to report, patient became aggressive and agitated and started punching the wall and needed to go to the quiet room and received Prolixin when necessary along with Ativan. Patient states that he was able to eat afterwards and felt better. He claims that he still deals with anxiety during the day and continues to be impulsive. He continues to have superficial/limited insight. We spoke about other medication options and patient is agreeable to try Lamictal at this time to help control his mood. He is denying any depression today. At this time patient denies any suicidal or homical ideations, intent or plan. Patient denies any auditory, visual hallucinations and denies any paranoia or delusions. Patient denies any side effects from the medications and has been compliant with meds. Mental Status Exam: General Appearance: Patient appears to be has several tattoos, shorter hair, stated age is alert, directable and polite. Patient appears to have fair hygiene and grooming. Behavior: Patient is seated without any agitated behavior. Impulsive yet is polite and directable. Speech: Patient's speech is fluent and nonpressured. Mood/Affect: Patient reports their mood is improving mildly, affect is congruent and constricted. Suicidality/Homicidality: Patient denies having any homicidal ideation intent or plan. Claims that he is feeling suicidal, no intent or plan. Perceptions: Patient things that he is hearing voices of voices telling him to harm himself and others, no visual hallucinations. Though content/process: There is no evidence of any delusional thought content and thought process is linear and goal-directed. concrete Memory and concentration: AOX3, grossly intact for the purposes of this session Judgment and insight: chronically poor, improving mildly IMPRESSIONS: Schizoaffective disorder, bipolar type Cluster B personality disorder Cannabis use disorder Nicotine dependence Plan: -Patient continues to meet criteria for inpatient psychiatric admission for symptom stabilization and safety. Patient has not signed adult voluntary form and medication consent and was placed in patient's chart. -Medications: decrease Abilify PO 7.5 mg daily for mood stabilization/psychosis and continue tapering down as pt was given Abilify Maintenna 400 mg IM on 10/29, continue with Depakote 750 mg twice a day for mood stabilization/aggression. Trazodone 50 mg daily at bedtime for insomnia/mood. vistaril prn for anxiety and inderal prn for akithesia/anxiety. added lamictal 25 mg bid for mood stabilization and plan to increase to 50 mg bid starting wednesday morning. discussed with patient risk of potential rash and to alert staff if this does develop, he verbally understood and agreed. -When necessary Ativan and Prolixin for agitation/aggression. -NRT - nicotine patch -SW on board for discharge planning. Encouraged the patient to participate in milieu. likely discharge early next week. patient has mental health court at 9 am on wednesday for previous assault charges and will need to zoom into court if pt is still on the unit.
[2022-10-30] MEDS: lamoTRIgine 25 MG TAB PO SCH ×2 (12:14→21:46)
[2022-10-30 14:55] LABS: Appearance,Urine Cloudy (Clear); Bacteria,Urine Rare /hpf; Bilirubin,Urine Negative (Negative); Blood,Urine Large (Negative); Color,Urine Yellow; Glucose,Urine (UA) Negative (Negative); Ketones,Urine Trace (Negative); Leukocyte Esterase,Urine Large (Negative); Mucus,Urine Rare /hpf; Nitrite,Urine Negative (Negative); PH, Urine 6.5 (5.0-8.0); Protein,Urine Trace (Negative); RBC,Urine >182 /hpf (0-5); Specific Gravity,Urine 1.016 (1.001-1.035); Squamous Epithelial Cell,Urine 8 /hpf (0-4); Urobilinogen,Urine <2.0 mg/dL (<2.0); WBC,Urine 46 /hpf (0-5)
[2022-10-30] MEDS: traZODone HCL 50 MG TAB PO SCH (21:46)
[2022-10-31] MEDS: LORazepam 1 MG TAB PO PRN (06:07)
[2022-10-31] MEDS: NICOTINE 14MG/24HR PATCH TRANSDERM SCH (08:26)
[2022-10-31] MEDS: ARIPiprazole 5 MG TAB PO SCH (08:28)
[2022-10-31] MEDS: DIVALPROEX ER 250 MG TAB.ER.24H PO SCH ×2 (08:28→20:42)
[2022-10-31] MEDS: lamoTRIgine 25 MG TAB PO SCH ×2 (08:29→20:43)
[2022-10-31] MEDS: hydrOXYzine pamoate 25 MG CAP PO PRN (11:09)
[2022-10-31] MEDS: NICOTINE GUM (POLACRILEX) 2 MG GUM BUCCAL PRN (18:33)
--- NOTE | 2022-10-31 18:34 | P.PN ---
Progress Note - Text Progress Note Date: 10/31/22 Interval history: Patient was seen socializing with peers in the hallway, and was directable and agreeable to speak with creative services writer. He was seen with male nurse in the room. At this time patient denies any suicidal or homicidal ideation, intent or plan. He denies any auditory or visual hallucinations. Patient denies any side effects from the medications and has been compliant with meds. He requests a higher dose of his nicotine patch since he smokes about 3 ppd. Mental status exam: General Appearance: Patient appears to be stated age, dressed in clean casual attire, short/buzzed hair. Behavior: No agitated behavior. Patient is calm and directable. Speech: Patient's speech is fluent and non-pressured. Mood/Affect: Mood is improving mildly, affect is congruent and constricted. Suicidality/Homicidality: Patient denies having any suicidal or homicidal ideation intent or plan. Perceptions: Patient denies any auditory or visual hallucinations. Though content/process: There is no evidence of any delusional thought content and thought process is linear and goal-directed. Memory and concentration: AOX3, grossly intact for the purposes of this session Judgment and insight: improving mildly Assessment/Plan: Continue with current diagnosis. Patient continues to meet criteria for inpatient psychiatric admission for symptom stabilization and safety. Patient will be maintained on current psychotropic medication regimen. Will increase dose of nicotine patch for nicotine dependence. Monitor for medication compliance and for any psychotropic medication side effects. Will continue to monitor ongoing response to treatment. Encouraged participation in milieu.
[2022-10-31] MEDS: traZODone HCL 50 MG TAB PO SCH (20:43)
[2022-11-01] MEDS: LORazepam 1 MG TAB PO PRN (04:44)
[2022-11-01 05:39] VITALS: PULSE 77; RESP 16
[2022-11-01] MEDS: NICOTINE 21MG/24HR PATCH TRANSDERM SCH (08:39)
[2022-11-01] MEDS: ARIPiprazole 5 MG TAB PO SCH (08:39)
[2022-11-01] MEDS: lamoTRIgine 25 MG TAB PO SCH ×2 (08:40→20:33)
[2022-11-01] MEDS: DIVALPROEX ER 250 MG TAB.ER.24H PO SCH ×2 (08:40→20:32)
[2022-11-01] MEDS: NICOTINE GUM (POLACRILEX) 2 MG GUM BUCCAL PRN ×2 (08:44→17:41)
[2022-11-01] MEDS: hydrOXYzine pamoate 25 MG CAP PO PRN ×2 (10:46→20:59)
--- NOTE | 2022-11-01 19:03 | P.PN ---
Progress Note - Text Progress Note Date: 11/01/22 Interval history: Patient was seen on the phone, and was directable and agreeable to speak with process description writer. He reports good mood and denies any concerns today. At this time patient denies any suicidal or homicidal ideation, intent or plan. He denies any auditory or visual hallucinations. Patient denies any side effects from the medications and has been compliant with meds. He attended morning groups but did not attend afternoon groups. He is looking forward to discharge. Behavior on the unit has been appropriate today. Mental status exam: General Appearance: Patient appears to be stated age, dressed in clean casual attire, short/buzzed hair. Behavior: No agitated behavior. Patient is calm and directable. Speech: Patient's speech is fluent and non-pressured. Mood/Affect: Mood is improving mildly, affect is congruent. Suicidality/Homicidality: Patient denies having any suicidal or homicidal ideation intent or plan. Perceptions: Patient denies any auditory or visual hallucinations. Though content/process: There is no evidence of any delusional thought content and thought process is linear and goal-directed. Memory and concentration: AOX3, grossly intact for the purposes of this session Judgment and insight: improving mildly Assessment/Plan: Continue with current diagnosis. Patient continues to meet criteria for inpatient psychiatric admission for symptom stabilization and safety. Patient will be maintained on current psychotropic medication regimen. Monitor for medication compliance and for any psychotropic medication side effects. Will continue to monitor ongoing response to treatment. Encouraged participation in milieu.
[2022-11-01] MEDS: traZODone HCL 50 MG TAB PO SCH (20:32)
[2022-11-02] MEDS: LORazepam 1 MG TAB PO PRN (05:38)
[2022-11-02 05:41] VITALS: BP 124/63; TEMP 97.4
[2022-11-02] MEDS: DIVALPROEX ER 250 MG TAB.ER.24H PO SCH (07:54)
[2022-11-02] MEDS: ARIPiprazole 5 MG TAB PO SCH (07:54)
[2022-11-02] MEDS: lamoTRIgine 25 MG TAB PO SCH (07:55)
[2022-11-02] MEDS: NICOTINE 21MG/24HR PATCH TRANSDERM SCH (07:55)
[2022-11-02] MEDS ORDERED: ARIPiprazole IM 400 MG VIAL (NO COST) PHARMACY STOCK IM SCH (09:00)
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
[2022-11-02] MEDS: NICOTINE GUM (POLACRILEX) 2 MG GUM BUCCAL PRN (10:24)
== END 2022-11-02 12:00 | disposition home or self-care (01) | DRG 885 ==
LOC: EC 13:54 → 3MHU 23:39
PROVIDERS: ADMIT Psychiatry & Neurology Psychiatry; ATTEND Psychiatry & Neurology Psychiatry
DX: F25.0 Schizoaffective disorder, bipolar type (principal); R45.851 Suicidal ideations; F12.10 Cannabis abuse, uncomplicated; F17.210 Nicotine dependence, cigarettes, uncomplicated; F43.10 Post-traumatic stress disorder, unspecified; F60.89 Other specific personality disorders; G47.00 Insomnia, unspecified; I10 Essential (primary) hypertension; Z56.0 Unemployment, unspecified; R45.1 Restlessness and agitation; M79.642 Pain in left hand; R45.88 Nonsuicidal self-harm; W22.8XXA Striking against or struck by other objects, initial encounter; Z65.3 Problems related to other legal circumstances; Z20.822 Contact with and (suspected) exposure to COVID-19; Z28.310 Unvaccinated for COVID-19; Z28.21 Immunization not carried out because of patient refusal; Z88.5 Allergy status to narcotic agent; Z88.8 Allergy status to other drugs, medicaments and biological substances; Z79.899 Other long term (current) drug therapy
CPT/HCPCS: 80053; 80164; 80306; 81001; 82075; 84443; 85025; 87635

== ENCOUNTER 2022-11-14 13:56 | Emergency (ER) | payer OTHER ==
[2022-11-14] MEDS ORDERED: ONDANSETRON 4 MG/2 ML VIAL IVP STA (15:18)
[2022-11-14] MEDS ORDERED: KETOROLAC 15 MG/ML 1 ML VIAL IVP STA (15:18)
[2022-11-14] MEDS ORDERED: SODIUM CHLORIDE 0.9% 1,000 ML IV STA (15:18)
[2022-11-14] MEDS ORDERED: SODIUM CHLORIDE 0.9% 500 ML 500 ML IV STA (15:18)
--- NOTE | 2022-11-14 15:46 | ED ---
Back Pain HPI - General Chief Complaint: Back Pain/Injury Stated Complaint: back pain, blood in urine Time Seen by Provider: 11/14/22 14:56 Source: patient, RN notes reviewed Limitations: no limitations - History of Present Illness Initial Comments: 27-year-old male presents emergency Department chief complaint right flank pain. Patient states has not felt well last 2 weeks she states he's lost 12 pounds, have increasing nausea vomiting dysuria states noticed some blood in his urine today. Patient states right flank region underneath his right side of his ribs. Patient states she's had prior appendectomy states that he just doesn't have an appetite states been very weak, tired feeling no definite fever. Patient states that he's had no new medications denies any recent procedures. - Related Data Previous Rx's Medication Instructions Recorded ARIPiprazole IM [Abilify Maintena] 400 mg IM QMONTHLY #1 each 11/02/22 ARIPiprazole [Abilify] 5 mg PO DAILY 5 Days tab 11/02/22 Divalproex ER [Depakote ER] 750 mg PO BID 30 Days tab 11/02/22 Nicotine 14Mg/24Hr Patch [Habitrol] 1 patch TRANSDERM DAILY PRN 14 11/02/22 Days patch Nicotine Gum (Polacrilex) 2 mg BUCCAL Q4HR PRN 28 Days 11/02/22 [Nicorette] pieceofgum hydrOXYzine pamoate [Vistaril] 50 mg PO BID PRN 30 Days cap 11/02/22 lamoTRIgine [LaMICtal] 100 mg PO DAILY 30 Days tab 11/02/22 traZODone HCL [Desyrel] 50 mg PO HS 30 Days tab 11/02/22 Sulfamethox-Tmp 800-160Mg [Bactrim 1 each PO Q12HR #14 tab 11/14/22 Ds] Allergies Allergy/AdvReac Type Severity Reaction Status Date / Time codeine Allergy Rash/Hives Verified 11/14/22 14:20 fentanyl Allergy Rash/Hives Verified 11/14/22 14:20 haloperidol Allergy tremors, Verified 11/14/22 14:20 difficulty breathing prazosin Allergy Rapid Verified 11/14/22 14:20 Heart Rate Review of Systems ROS Statement: Those systems with pertinent positive or pertinent negative responses have been documented in the HPI. ROS Other: All systems not noted in ROS Statement are negative. Past Medical History Past Medical History: Hypertension Additional Past Medical History / Comment(s): Gastritis, Pancreatitis, nate- short syndrome, angina History of Any Multi-Drug Resistant Organisms: None Reported Past Surgical History: No Surgical Hx Reported Past Anesthesia/Blood Transfusion Reactions: No Reported Reaction Past Psychological History: ADD/ADHD, Anxiety, Bipolar, Depression, Schizophrenia Smoking Status: Former smoker Past Alcohol Use History: None Reported Past Drug Use History: None Reported - Past Family History Mother Family Medical History: Hyperlipidemia Father Family Medical History: Chest Pain / Angina Additional Family Medical History / Comment(s): Heart murmmur General Exam Limitations: no limitations General appearance: alert, in no apparent distress Head exam: Present: atraumatic, normocephalic, normal inspection Eye exam: Present: normal appearance, PERRL, EOMI. Absent: scleral icterus, conjunctival injection, periorbital swelling ENT exam: Present: normal exam, normal oropharynx, mucous membranes moist Neck exam: Present: normal inspection, full ROM. Absent: tenderness, meningismus, lymphadenopathy Respiratory exam: Present: normal lung sounds bilaterally. Absent: respiratory distress, wheezes, rales, rhonchi, stridor Cardiovascular Exam: Present: normal rhythm, tachycardia, normal heart sounds. Absent: systolic murmur, diastolic murmur, rubs, gallop, clicks GI/Abdominal exam: Present: soft, tenderness, normal bowel sounds. Absent: distended, guarding, rebound, rigid Back exam: Present: CVA tenderness (R). Absent: CVA tenderness (L) Neurological exam: Present: alert Course Vital Signs 11/14/22 11/14/22 14:16 16:48 Temperature 97.6 F 99.2 F Pulse Rate 116 H 85 Respiratory 18 16 Rate Blood Pressure 163/79 131/81 O2 Sat by Pulse 98 98 Oximetry Medical Decision Making - Medical Decision Making Was pt. sent in by a medical professional or institution? @ -None Did you speak to anyone other than the patient for history? @ -None Did you review nursing and triage notes? @ -Agree and reviewed Were old charts reviewed? @ -None Differential Diagnosis? @ -UTI, pyelonephritis, cholecystitis, gastritis, colitis, list is not all inclusive EKG interpreted by me (3pts min.)? @ -[none] X-rays interpreted by me (1pt min.)? @ -[none] CT interpreted by me (1pt min.)? @ -CT of abdomen and pelvis interpreted by me and radiology no acute intra- abdominal process. U/S interpreted by me (1pt. min.)? @ -[none] What testing was considered but not performed? (CT, X-rays, U/S, labs)? Why? @ Ultrasound gallbladder though CT did not have an acute findings lab work was unremarkable felt unnecessary What meds were considered but not given? Why? @ -[none] Did you discuss the management of the patient with other professionals? @ -Attending Dr. Ontiveros Did you reconcile home meds? @ -[none] Was smoking cessation discussed for >3mins.? @ -[none] Was critical care preformed (if so, how long)? @ -[none] Were there social determinants of health that impacted care today? How? (Homelessness, low income, unemployed, alcoholism, drug addiction, transportation, low edu. Level, literacy, decrease access to med. care, longterm, rehab)? @ -None Was there de-escalation of care discussed even if they declined? (Discuss DNR or withdrawal of care, Hospice)? @ -No What co-morbidities impacted this encounter? (DM, HTN, Smoking, COPD, CAD, Cancer, CVA, Hep., AIDS, mental health diagnosis, sleep apnea, morbid obesity)? @ -None Was patient admitted / discharged? @ -Discharged Undiagnosed new problem with uncertain prognosis? @ -[none] Drug Therapy requiring intensive monitoring for toxicity (Heparin, Nitro, Insulin, Cardizem)? @ -[none] Were any procedures done? @ -[none] Diagnosis/symptom? @ -UTI Acute, or Chronic, or Acute on Chronic? @ -To Uncomplicated (without systemic symptoms) or Complicated (systemic symptoms)? @ -Uncomplicated Side effects of treatment? @ -[none] Exacerbation, Progression, or Severe Exacerbation] @ -[no] Poses a threat to life or bodily function? @ -[no] - Lab Data Result diagrams: 11/14/22 16:36 11/14/22 16:36 Lab Results 11/14/22 11/14/22 11/14/22 Range/Units 16:08 16:36 16:36 WBC 6.5 (3.8-10.6) k/uL RBC 5.11 (4.30-5.90) m/uL Hgb 15.4 (13.0-17.5) gm/dL Hct 46.3 (39.0-53.0) % MCV 90.6 (80.0-100.0) fL MCH 30.2 (25.0-35.0) pg MCHC 33.3 (31.0-37.0) g/dL RDW 12.0 (11.5-15.5) % Plt Count 233 (150-450) k/uL MPV 7.9 Neutrophils % 66 % Lymphocytes % 21 % Monocytes % 6 % Eosinophils % 3 % Basophils % 2 % Neutrophils # 4.3 (1.3-7.7) k/uL Lymphocytes # 1.4 (1.0-4.8) k/uL Monocytes # 0.4 (0-1.0) k/uL Eosinophils # 0.2 (0-0.7) k/uL Basophils # 0.2 (0-0.2) k/uL Sodium 140 (137-145) mmol/L Potassium 4.8 (3.5-5.1) mmol/L Chloride 102 (98-107) mmol/L Carbon Dioxide 28 (22-30) mmol/L Anion Gap 10 mmol/L BUN 7 L (9-20) mg/dL Creatinine 0.96 (0.66-1.25) mg/dL Est GFR (CKD-EPI)AfAm >90 (>60 ml/min/1.73 sqM) Est GFR (CKD-EPI)NonAf >90 (>60 ml/min/1.73 sqM) Glucose 96 (74-99) mg/dL Plasma Lactic Acid Winston (0.7-2.0) mmol/L Calcium 9.0 (8.4-10.2) mg/dL Total Bilirubin 0.2 (0.2-1.3) mg/dL AST 36 (17-59) U/L ALT 38 (4-49) U/L Alkaline Phosphatase 112 (38-126) U/L Total Protein 7.5 (6.3-8.2) g/dL Albumin 4.6 (3.5-5.0) g/dL Lipase 53 (23-300) U/L Urine Color Yellow Urine Appearance Clear (Clear) Urine pH 6.5 (5.0-8.0) Ur Specific Boykin 1.019 (1.001-1.035) Urine Protein Negative (Negative) Urine Glucose (UA) Negative (Negative) Urine Ketones 1+ H (Negative) Urine Blood Negative (Negative) Urine Nitrite Negative (Negative) Urine Bilirubin Negative (Negative) Urine Urobilinogen <2.0 (<2.0) mg/dL Ur Leukocyte Esterase Large H (Negative) Urine RBC 7 H (0-5) /hpf Urine WBC 91 H (0-5) /hpf Urine Mucus Rare H (None) /hpf 11/14/22 Range/Units 16:36 WBC (3.8-10.6) k/uL RBC (4.30-5.90) m/uL Hgb (13.0-17.5) gm/dL Hct (39.0-53.0) % MCV (80.0-100.0) fL MCH (25.0-35.0) pg MCHC (31.0-37.0) g/dL RDW (11.5-15.5) % Plt Count (150-450) k/uL MPV Neutrophils % % Lymphocytes % % Monocytes % % Eosinophils % % Basophils % % Neutrophils # (1.3-7.7) k/uL Lymphocytes # (1.0-4.8) k/uL Monocytes # (0-1.0) k/uL Eosinophils # (0-0.7) k/uL Basophils # (0-0.2) k/uL Sodium (137-145) mmol/L Potassium (3.5-5.1) mmol/L Chloride (98-107) mmol/L Carbon Dioxide (22-30) mmol/L Anion Gap mmol/L BUN (9-20) mg/dL Creatinine (0.66-1.25) mg/dL Est GFR (CKD-EPI)AfAm (>60 ml/min/1.73 sqM) Est GFR (CKD-EPI)NonAf (>60 ml/min/1.73 sqM) Glucose (74-99) mg/dL Plasma Lactic Acid Winston 1.2 (0.7-2.0) mmol/L Calcium (8.4-10.2) mg/dL Total Bilirubin (0.2-1.3) mg/dL AST (17-59) U/L ALT (4-49) U/L Alkaline Phosphatase (38-126) U/L Total Protein (6.3-8.2) g/dL Albumin (3.5-5.0) g/dL Lipase (23-300) U/L Urine Color Urine Appearance (Clear) Urine pH (5.0-8.0) Ur Specific Boykin (1.001-1.035) Urine Protein (Negative) Urine Glucose (UA) (Negative) Urine Ketones (Negative) Urine Blood (Negative) Urine Nitrite (Negative) Urine Bilirubin (Negative) Urine Urobilinogen (<2.0) mg/dL Ur Leukocyte Esterase (Negative) Urine RBC (0-5) /hpf Urine WBC (0-5) /hpf Urine Mucus (None) /hpf Disposition Clinical Impression: UTI (urinary tract infection) Disposition: HOME SELF-CARE Condition: Stable Instructions (If sedation given, give patient instructions): Urinary Tract Infection in Men (ED) Additional Instructions: Please return to the Emergency Department if symptoms worsen or any other concerns. Prescriptions: Sulfamethox-Tmp 800-160Mg [Bactrim Ds] 1 each PO Q12HR #14 tab Is patient prescribed a controlled substance at d/c from ED?: No Referrals: Kanika Cedeño MD [Primary Care Provider] - 1-2 days Time of Disposition: 17:37
[2022-11-14] MEDS ORDERED: HYDROmorphone 0.5 MG/0.5 ML SYRINGE IVP STA (16:23)
[2022-11-14 16:38] LABS: Appearance,Urine Clear (Clear); Bilirubin,Urine Negative (Negative); Color,Urine Yellow; Glucose,Urine (UA) Negative (Negative); Ketones,Urine 1+ (Negative); PH, Urine 6.5 (5.0-8.0); Protein,Urine Negative (Negative); Specific Gravity,Urine 1.019 (1.001-1.035)
[2022-11-14 16:39] LABS: Blood,Urine Negative (Negative); Leukocyte Esterase,Urine Large (Negative); Mucus,Urine Rare /hpf; Nitrite,Urine Negative (Negative); RBC,Urine 7 /hpf (0-5); Urobilinogen,Urine <2.0 mg/dL (<2.0); WBC,Urine 91 /hpf (0-5)
[2022-11-14 16:48] VITALS: TEMP 99.2
--- NOTE | 2022-11-14 16:49 | CT ---
EXAMINATION TYPE: CT abdomen pelvis wo con DATE OF EXAM: 11/14/2022 COMPARISON: None HISTORY: Right side flank pain CT DLP: 668.2 mGycm Automated exposure control for dose reduction was used. Images obtained from the diaphragm to the floor the pelvis with no contrast. Lung bases are clear. No pleural effusion. Heart size is normal. No pericardial effusion. Liver splee n and stomach pancreas and gallbladder appear intact. The bile ducts are not dilated. There is no adrenal mass. Kidneys show normal size and contour. No hydronephrosis. Ureters are not di lated. No retroperitoneal adenopathy. The bladder distends smoothly. No inguinal hernia. No free flui d in the pelvis. The lumbar vertebra have normal alignment. No compression fracture. The bony pelvis is intact. The hi p joints are intact. No evidence of renal calculus. Appendix not seen. No sign of thickened appendix. IMPRESSION: Negative CT scan of the abdomen pelvis.
[2022-11-14 16:52] LABS: Basophils # (A) 0.2 k/uL (0-0.2); Basophils % (A) 2 %; Eosinophils # (A) 0.2 k/uL (0-0.7); Eosinophils % (A) 3 %; HCT 46.3 % (39.0-53.0); HGB 15.4 gm/dL (13.0-17.5); Lymphocytes # (A) 1.4 k/uL (1.0-4.8); Lymphocytes % (A) 21 %; MCH 30.2 pg (25.0-35.0); MCHC 33.3 g/dL (31.0-37.0); MCV 90.6 fL (80.0-100.0); Mean Platelet Volume 7.9; Monocytes # (A) 0.4 k/uL (0-1.0); Monocytes % (A) 6 %; Neutrophils # (A) 4.3 k/uL (1.3-7.7); Neutrophils % (A) 66 %; Platelet Count 233 k/uL (150-450); RBC 5.11 m/uL (4.30-5.90); WBC 6.5 k/uL (3.8-10.6)
[2022-11-14 17:04] LABS: ALT 38 U/L (4-49); AST 36 U/L (17-59); African American GFR (CKD) >90 (>60 ml/min/1.73 sqM); Albumin 4.6 g/dL (3.5-5.0); Alkaline Phosphatase 112 U/L (38-126); Anion Gap 10 mmol/L; Blood Urea Nitrogen 7 mg/dL (9-20); Carbon Dioxide 28 mmol/L (22-30); Chloride 102 mmol/L (98-107); Glucose 96 mg/dL (74-99); Lipase 53 U/L (23-300); Non-African American GFR(CKD) >90 (>60 ml/min/1.73 sqM); Sodium 140 mmol/L (137-145); Total Bilirubin 0.2 mg/dL (0.2-1.3); Total Protein 7.5 g/dL (6.3-8.2)
[2022-11-14 17:05] LABS: Potassium 4.8 mmol/L (3.5-5.1)
[2022-11-14] MEDS ORDERED: cefTRIAXone IN SWFI 1,000 MG/10 ML SYRINGE IVP STA (17:23)
[2022-11-14] MEDS ORDERED: SULFAMETH-TMP DS STARTER PACK 2 TAB BTL PO STA ×2 (17:35→17:45)
[2022-11-14 18:09] VITALS: BP 129/73; PULSE 76; RESP 18
== END 2022-11-14 18:09 | disposition home or self-care (01) ==
LOC: EC 13:56
DX: N39.0 Urinary tract infection, site not specified (principal); I10 Essential (primary) hypertension; F41.9 Anxiety disorder, unspecified; F31.9 Bipolar disorder, unspecified; Z87.891 Personal history of nicotine dependence; Z88.5 Allergy status to narcotic agent; Z88.6 Allergy status to analgesic agent; Z88.8 Allergy status to other drugs, medicaments and biological substances
CPT/HCPCS: 36415; 80053; 83605; 83690; 85025; 81001; 87491; 87591; 87086; 74176; 99284; 96374; 96375 ×3; 96361; J2405; J0696; J1885; J1170

== ENCOUNTER 2022-11-15 16:34 | Emergency (ER) | payer OTHER ==
[2022-11-15 16:43] VITALS: TEMP 98.4
--- NOTE | 2022-11-15 17:03 | ED ---
General Adult HPI - General Chief complaint: Psychiatric Symptoms Stated complaint: Petition Time Seen by Provider: 11/15/22 16:49 Source: patient Mode of arrival: wheelchair Limitations: no limitations - History of Present Illness Initial comments: Dictation was produced using [employer] dictation software. please excuse any grammatical, word or spelling errors. Chief Complaint: 27-year-old male past medical history of bipolar disease presents to the emergency department for suicidal behavior History of Present Illness: Patient is 27-year-old male who is brought in by law enforcement. Apparently law enforcement was called by patient's sister. Patient was angry and began cutting his anterior forearms bilaterally with the back of a sharp blade. This was witnessed and sister called law enforcement is brought to the ER. Enforcement team was familiar with patient states that he has bad history of bipolar disease. Patient has any medical complaints at this time. States that he was angry. Denies suicidal homicidal ideation to me. No visual auditory hallucinations. Patient has been admitted to psych facility in the past. The ROS documented in this emergency department record has been reviewed and confirmed by me. Those systems with pertinent positive or negative responses have been documented in the HPI. All other systems are other negative and/or noncontributory. PHYSICAL EXAM: General Impression: Alert and oriented x3, not in acute distress HEENT: Normocephalic atraumatic, extra-ocular movements intact, pupils equal and reactive to light bilaterally, mucous membranes moist. Cardiovascular: Heart regular rate and rhythm Chest: Able to complete full sentences, no retractions, no tachypnea Abdomen: abdomen soft, non-tender, non-distended, no organomegaly Musculoskeletal: Pulses present and equal in all extremities, no peripheral edema Motor: no focal deficits noted Neurological: CN II-XII grossly intact, no focal motor or sensory deficits noted Skin: Superficial abrasions without any significant violation to the dermis and epidermis to the bilateral anterior forearms Psych: Normal affect and mood ED course: 27-year-old male brought in for psychiatric evaluation for history of bipolar disease and suicidal behavior. Vital signs upon arrival are within acceptable limits. Patient is medically cleared for this evaluation. Nursing notes and chart review was performed Patient evaluated by EPS and recommended discharge with outpatient management. - Related Data Home Medications Medication Instructions Recorded Confirmed Sulfamethox-Tmp 800-160Mg [Bactrim 1 tab PO Q12HR 11/15/22 11/15/22 Ds] hydrOXYzine pamoate [Vistaril] 50 mg PO BID 11/15/22 11/15/22 Previous Rx's Medication Instructions Recorded ARIPiprazole IM [Abilify Maintena] 400 mg IM QMONTHLY #1 each 11/02/22 Divalproex ER [Depakote ER] 750 mg PO BID 30 Days tab 11/02/22 Nicotine 14Mg/24Hr Patch [Habitrol] 1 patch TRANSDERM DAILY PRN 14 11/02/22 Days patch Nicotine Gum (Polacrilex) 2 mg BUCCAL Q4HR PRN 28 Days 11/02/22 [Nicorette] pieceofgum lamoTRIgine [LaMICtal] 100 mg PO DAILY 30 Days tab 11/02/22 traZODone HCL [Desyrel] 50 mg PO HS 30 Days tab 11/02/22 Allergies Allergy/AdvReac Type Severity Reaction Status Date / Time codeine Allergy Rash/Hives Verified 11/15/22 20:29 fentanyl Allergy Rash/Hives Verified 11/15/22 20:29 haloperidol Allergy tremors, Verified 11/15/22 20:29 difficulty breathing prazosin Allergy Rapid Verified 11/15/22 20:29 Heart Rate Review of Systems ROS Statement: Those systems with pertinent positive or pertinent negative responses have been documented in the HPI. ROS Other: All systems not noted in ROS Statement are negative. Past Medical History Past Medical History: Hypertension Additional Past Medical History / Comment(s): Gastritis, Pancreatitis, nate- short syndrome, angina History of Any Multi-Drug Resistant Organisms: None Reported Past Surgical History: No Surgical Hx Reported Past Anesthesia/Blood Transfusion Reactions: No Reported Reaction Past Psychological History: ADD/ADHD, Anxiety, Bipolar, Depression, Schizophrenia Smoking Status: Current every day smoker, Vaper Past Alcohol Use History: None Reported Past Drug Use History: None Reported - Past Family History Mother Family Medical History: Hyperlipidemia Father Family Medical History: Chest Pain / Angina Additional Family Medical History / Comment(s): Heart murmmur General Exam Limitations: no limitations Course Vital Signs 11/15/22 11/15/22 16:41 20:18 Temperature 98.4 F Pulse Rate 99 85 Respiratory 20 14 Rate Blood Pressure 143/89 140/94 O2 Sat by Pulse 100 99 Oximetry Medical Decision Making - Lab Data Lab Results 11/15/22 Range/Units 17:19 Urine Opiates Screen Not Detected (NotDetected) Ur Oxycodone Screen Not Detected (NotDetected) Urine Methadone Screen Not Detected (NotDetected) Ur Propoxyphene Screen Not Detected (NotDetected) Ur Barbiturates Screen Not Detected (NotDetected) U Tricyclic Antidepress Not Detected (NotDetected) Ur Phencyclidine Scrn Not Detected (NotDetected) Ur Amphetamines Screen Not Detected (NotDetected) U Methamphetamines Scrn Not Detected (NotDetected) U Benzodiazepines Scrn Not Detected (NotDetected) Urine Cocaine Screen Not Detected (NotDetected) U Marijuana (THC) Screen Detected H (NotDetected) Disposition Clinical Impression: Self-harming behavior Disposition: HOME SELF-CARE Condition: Good Instructions (If sedation given, give patient instructions): Medical Clearance for Psychiatric Care (ED) Is patient prescribed a controlled substance at d/c from ED?: No Referrals: Kanika Cedeño MD [Primary Care Provider] - 1-2 days Time of Disposition: 00:39
[2022-11-15 17:40] LABS: Amphetamine Screen,Urine Not Detected (NotDetected); Barbiturate Screen,Urine Not Detected (NotDetected); Benzodiazepines Screen,Urine Not Detected (NotDetected); Cocaine Screen,Urine Not Detected (NotDetected); Methadone Screen, Urine Not Detected (NotDetected); Opiate Screen,Urine Not Detected (NotDetected); Oxycodone Screen, Urine Not Detected (NotDetected); Phencyclidine Screen,Urine Not Detected (NotDetected); Tricyclic Antidepressant,Urine Not Detected (NotDetected); Urn Cannabinoid Scrn Detected (NotDetected)
[2022-11-15 20:20] VITALS: BP 140/94; PULSE 85; RESP 14
[2022-11-16] MEDS ORDERED: lamoTRIgine 100 MG TAB PO SCH (09:00)
[2022-11-16] MEDS ORDERED: hydrOXYzine pamoate 25 MG CAP PO SCH (09:00)
[2022-11-16] MEDS ORDERED: DIVALPROEX ER 250 MG TAB.ER.24H PO SCH (09:00)
[2022-11-16] MEDS ORDERED: NICOTINE 14MG/24HR PATCH TRANSDERM PRN (09:00)
[2022-11-16] MEDS ORDERED: traZODone HCL 50 MG TAB PO SCH (21:00)
[2022-11-23] MEDS ORDERED: ARIPiprazole IM 400 MG VIAL (NO COST) PHARMACY STOCK IM SCH (09:00)
== END 2022-11-16 00:51 | disposition home or self-care (01) ==
LOC: EC 16:34
DX: R45.88 Nonsuicidal self-harm (principal); I10 Essential (primary) hypertension; F41.9 Anxiety disorder, unspecified; F31.9 Bipolar disorder, unspecified; F90.9 Attention-deficit hyperactivity disorder, unspecified type; F17.200 Nicotine dependence, unspecified, uncomplicated; Z88.5 Allergy status to narcotic agent; Z88.8 Allergy status to other drugs, medicaments and biological substances; Z79.899 Other long term (current) drug therapy
CPT/HCPCS: 80306; 82075; 99285

== ENCOUNTER 2022-12-09 20:39 | Emergency (ER) | payer OTHER ==
[2022-12-09 20:44] VITALS: BP 138/85; PULSE 87; RESP 18; TEMP 97.5
[2022-12-09] MEDS ORDERED: MORPHINE SULFATE 4 MG/ML SYRINGE IM STA (21:27)
--- NOTE | 2022-12-09 22:06 | XR ---
EXAMINATION TYPE: XR hand complete RT DATE OF EXAM: 12/09/2022 9:47 PM INDICATION: Patient age:Male; 27 years old; Reason for study: punched a car, obvious deformity; PHH. COMPARISON: Bilateral hand radiograph 09/29/2022. TECHNIQUE: Frontal, lateral and oblique views of the right hand were obtained. FINDINGS: Normal alignment of the visualized joints. No acute osseous pathology is identified. Soft tissue swelling over the third and fourth metacarpal joints. IMPRESSION: 1. No acute osseous pathology. Consider follow-up radiograph in 7-14 days if there is continued clin ical concern. 2. Soft tissue swelling over the third and fourth metacarpal joints.
--- NOTE | 2022-12-09 22:22 | ED ---
Upper Extremity HPI - General Chief Complaint: Extremity Injury, Upper Stated Complaint: Right Hand Injury Time Seen by Provider: 12/09/22 20:56 Source: patient Mode of arrival: ambulatory Limitations: no limitations - History of Present Illness Initial Comments: Patient is a 27-year-old male presenting with chief complaint of right hand pain and swelling. Patient states that he punched the frame of his car today due to frustration. Most notably he is complaining of swelling and bruising to the third and fourth knuckles. He is having difficulty moving digits 3 and 4 due to the swelling. He denies any numbness or tingling. No pain in the wrist or the proximal hand - Related Data Home Medications Medication Instructions Recorded Confirmed Sulfamethox-Tmp 800-160Mg [Bactrim 1 tab PO Q12HR 11/15/22 11/15/22 Ds] hydrOXYzine pamoate [Vistaril] 50 mg PO BID 11/15/22 11/15/22 Previous Rx's Medication Instructions Recorded ARIPiprazole IM [Abilify Maintena] 400 mg IM QMONTHLY #1 each 11/02/22 Divalproex ER [Depakote ER] 750 mg PO BID 30 Days tab 11/02/22 Nicotine 14Mg/24Hr Patch [Habitrol] 1 patch TRANSDERM DAILY PRN 14 11/02/22 Days patch Nicotine Gum (Polacrilex) 2 mg BUCCAL Q4HR PRN 28 Days 11/02/22 [Nicorette] pieceofgum lamoTRIgine [LaMICtal] 100 mg PO DAILY 30 Days tab 11/02/22 traZODone HCL [Desyrel] 50 mg PO HS 30 Days tab 11/02/22 Allergies Allergy/AdvReac Type Severity Reaction Status Date / Time codeine Allergy Rash/Hives Verified 12/09/22 20:44 fentanyl Allergy Rash/Hives Verified 12/09/22 20:44 haloperidol Allergy tremors, Verified 12/09/22 20:44 difficulty breathing prazosin Allergy Rapid Verified 12/09/22 20:44 Heart Rate Review of Systems ROS Statement: Those systems with pertinent positive or pertinent negative responses have been documented in the HPI. ROS Other: All systems not noted in ROS Statement are negative. Past Medical History Past Medical History: Hypertension Additional Past Medical History / Comment(s): Gastritis, Pancreatitis, nate- short syndrome, angina History of Any Multi-Drug Resistant Organisms: None Reported Past Surgical History: No Surgical Hx Reported Past Anesthesia/Blood Transfusion Reactions: No Reported Reaction Past Psychological History: ADD/ADHD, Anxiety, Bipolar, Depression, Schizophrenia Smoking Status: Current every day smoker, Vaper Past Alcohol Use History: None Reported Past Drug Use History: None Reported - Past Family History Mother Family Medical History: Hyperlipidemia Father Family Medical History: Chest Pain / Angina Additional Family Medical History / Comment(s): Heart murmmur General Exam Limitations: no limitations General appearance: alert, in no apparent distress Head exam: Present: atraumatic, normocephalic, normal inspection Eye exam: Present: normal appearance Neck exam: Present: normal inspection, full ROM Right Forearm Wrist exam: Absent: tenderness over anatomical snuff box Hand Wrist exam: Present: tenderness, swelling, ecchymosis. Absent: full ROM (Secondary to pain and swelling) Vascular: Present: radial pulse (2+) Neurological exam: Present: alert, oriented X3, CN II-XII intact Psychiatric exam: Present: normal affect, normal mood Skin exam: Present: warm, dry, intact, normal color. Absent: rash Course Vital Signs 12/09/22 20:40 Temperature 97.5 F L Pulse Rate 87 Respiratory 18 Rate Blood Pressure 138/85 O2 Sat by Pulse 100 Oximetry Medical Decision Making - Medical Decision Making Was pt. sent in by a medical professional or institution (FLORA Cohn, MANA[employer], urgent care, hospital, or jail...) When possible be specific @ -No Did you speak to anyone other than the patient for history (EMS, parent, family, police, friend...)? What history was obtained from this source @ -No Did you review nursing and triage notes (agree or disagree)? Why? @ -I reviewed and agree with nursing and triage notes Were old charts reviewed (outside hosp., previous admission, EMS record, old EKG, old radiological studies, urgent care reports/EKG's, jail records)? Report findings @ -No old charts were reviewed Differential Diagnosis (chest pain, altered mental status, abdominal pain women, abdominal pain men, vaginal bleeding, weakness, fever, dyspnea, syncope, headache, dizziness, GI bleed, back pain, seizure, CVA, palpatations, mental health)? @ -Differential includes fracture, dislocation, sprain, this is not a comprehensive list EKG interpreted by me (3pts min.). @ -As above X-rays interpreted by me (1pt min.). @ -X-ray shows no acute osseous pathology. There is soft tissue swelling over the third and fourth metacarpal joints CT interpreted by me (1pt min.). @ -None done U/S interpreted by me (1pt. min.). @ -None done What testing was considered but not performed or refused? (CT, X-rays, U/S, labs)? Why? @ -None What meds were considered but not given or refused? Why? @ -None Did you discuss the management of the patient with other professionals (professionals i.e. , PA, MANAGER LAT[employer], lab, RT, psych nurse, child welfare social worker, rail car mechanic, teacher, upscale security officer, case assembler)? Give summary @ -No Was smoking cessation discussed for >3mins.? @ -No Was critical care preformed (if so, how long)? @ -No Were there social determinants of health that impacted care today? How? (Homelessness, low income, unemployed, alcoholism, drug addiction, transportation, low edu. Level, literacy, decrease access to med. care, longterm, rehab)? @ -No Was there de-escalation of care discussed even if they declined (Discuss DNR or withdrawal of care, Hospice)? DNR status @ -No What co-morbidities impacted this encounter? (DM, HTN, Smoking, COPD, CAD, Cancer, CVA, ARF, Chemo, Hep., AIDS, mental health diagnosis, sleep apnea, morbid obesity)? @ -None Was patient admitted / discharged? Hospital course, mention meds given and route, prescriptions, significant lab abnormalities, going to OR and other pertinent info. @ -Patient is a 27-year-old male presenting with chief complaint of right hand pain and swelling after punching his car today. Physical examination shows he is neurovascularly intact, there is significant swelling over the third and fourth metacarpals. X-ray shows no fracture or dislocation. Patient is educated on supportive treatment with rest, ice, compression, and elevation as well as taking Motrin and Tylenol at home as needed.Follow-up with PCP. Report back to ER with any new or worsening symptoms. Discussed return parameters and answered all questions. Patient conveyed verbal understanding and agreed to the plan. I discussed this case in detail with my attending Dr. Contreras Undiagnosed new problem with uncertain prognosis? @ -No Drug Therapy requiring intensive monitoring for toxicity (Heparin, Nitro, Insulin, Cardizem)? @ -No Were any procedures done? @ -No Diagnosis/symptom? @ -hand injury Acute, or Chronic, or Acute on Chronic? @ -Acute Uncomplicated (without systemic symptoms) or Complicated (systemic symptoms)? @ -Uncomplicated Side effects of treatment? @ -No Exacerbation, Progression, or Severe Exacerbation? @ -No Poses a threat to life or bodily function? How? (Chest pain, [place], [place], pneumonia, PE, COPD, DKA, ARF, appy, cholecystitis, CVA, Diverticulitis, Homicidal, Suicidal, threat to staff... and all critical care pts) @ -No Disposition Clinical Impression: Hand injury Disposition: HOME SELF-CARE Condition: Good Instructions (If sedation given, give patient instructions): Hand Sprain (ED) Additional Instructions: Follow-up with PCP. Report back to ER with any new or worsening symptoms. Take Motrin and Tylenol as needed for pain control. Rest, ice, compress, and elevate. Is patient prescribed a controlled substance at d/c from ED?: No Referrals: Kanika Cedeño MD [Primary Care Provider] - 1-2 days Time of Disposition: 22:22
== END 2022-12-09 22:34 | disposition home or self-care (01) ==
LOC: EC 20:39
DX: S69.91XA Unspecified injury of right wrist, hand and finger(s), initial encounter (principal); I10 Essential (primary) hypertension; F41.9 Anxiety disorder, unspecified; F31.9 Bipolar disorder, unspecified; F17.290 Nicotine dependence, other tobacco product, uncomplicated; Z88.5 Allergy status to narcotic agent; Z88.8 Allergy status to other drugs, medicaments and biological substances; W22.8XXA Striking against or struck by other objects, initial encounter
CPT/HCPCS: 73130; 99283; 96372; J2270

== ENCOUNTER 2022-12-18 13:38 | Emergency (ER) | payer OTHER ==
[2022-12-18 13:42] VITALS: TEMP 98.5
[2022-12-18] MEDS ORDERED: valACYclovir HCL 1,000 MG TABLET PO ONE (14:18)
[2022-12-18] MEDS ORDERED: methylPREDNISolone SOD SUCCI 125 MG/2 ML VIAL IM ONE (14:37)
--- NOTE | 2022-12-18 14:47 | ED ---
Skin/Abscess/FB HPI - General Chief complaint: Skin/Abscess/Foreign Body Stated complaint: rash Time Seen by Provider: 12/18/22 14:02 Source: patient, RN notes reviewed Mode of arrival: ambulatory Limitations: no limitations - History of Present Illness Initial comments: This is a 27-year-old male who presents to the emergency department for a rash. Patient states that this started on his back 4-5 days ago and has spread to his arm and neck. The rash is primarily left-sided, but states that he has some lesions on the right side now as well. States that when he was 18 he was diagnosed with shingles and states that this feels the same. However, the rash has spread more than it did last time. When he was 18 he did not receive any treatment for this shingles. Describes the rash as painful, itchy, and burning. States that the pain started before the rash. Denies coming in contact with any new soaps, lotions, or other substances. Denies any fevers, chills, sore throat, cough, dyspnea, chest pain, palpitations, abdominal pain, nausea, vomiting, diarrhea, back pain, or headaches. MD complaint: rash Onset/Timin -: days(s) Tetanus Up to Date: yes - Related Data Home Medications Medication Instructions Recorded Confirmed Sulfamethox-Tmp 800-160Mg [Bactrim 1 tab PO Q12HR 11/15/22 11/15/22 Ds] hydrOXYzine pamoate [Vistaril] 50 mg PO BID 11/15/22 11/15/22 Previous Rx's Medication Instructions Recorded ARIPiprazole IM [Abilify Maintena] 400 mg IM QMONTHLY #1 each 11/02/22 Divalproex ER [Depakote ER] 750 mg PO BID 30 Days tab 11/02/22 Nicotine 14Mg/24Hr Patch [Habitrol] 1 patch TRANSDERM DAILY PRN 14 11/02/22 Days patch Nicotine Gum (Polacrilex) 2 mg BUCCAL Q4HR PRN 28 Days 11/02/22 [Nicorette] pieceofgum lamoTRIgine [LaMICtal] 100 mg PO DAILY 30 Days tab 11/02/22 traZODone HCL [Desyrel] 50 mg PO HS 30 Days tab 11/02/22 predniSONE 50 mg PO DAILY 5 Days #5 tab 12/18/22 valACYclovir HCL [Valacyclovir] 1,000 mg PO Q8H 7 Days #21 tab 12/18/22 Allergies Allergy/AdvReac Type Severity Reaction Status Date / Time codeine Allergy Rash/Hives Verified 12/18/22 13:42 fentanyl Allergy Rash/Hives Verified 12/18/22 13:42 haloperidol Allergy tremors, Verified 12/18/22 13:42 difficulty breathing prazosin Allergy Rapid Verified 12/18/22 13:42 Heart Rate Review of Systems ROS Statement: Those systems with pertinent positive or pertinent negative responses have been documented in the HPI. ROS Other: All systems not noted in ROS Statement are negative. Past Medical History Past Medical History: Hypertension Additional Past Medical History / Comment(s): Gastritis, Pancreatitis, nate- short syndrome, angina History of Any Multi-Drug Resistant Organisms: None Reported Past Surgical History: Appendectomy Past Anesthesia/Blood Transfusion Reactions: No Reported Reaction Past Psychological History: ADD/ADHD, Anxiety, Bipolar, Depression, Schizophrenia Smoking Status: Current every day smoker, Vaper Past Alcohol Use History: None Reported Past Drug Use History: None Reported - Past Family History Mother Family Medical History: Hyperlipidemia Father Family Medical History: Chest Pain / Angina Additional Family Medical History / Comment(s): Heart murmmur General Exam Limitations: no limitations General appearance: alert, in no apparent distress Head exam: Present: atraumatic, normocephalic, normal inspection Respiratory exam: Present: normal lung sounds bilaterally. Absent: respiratory distress, wheezes, rales, rhonchi, stridor Cardiovascular Exam: Present: regular rate, normal rhythm, normal heart sounds. Absent: systolic murmur, diastolic murmur, rubs, gallop, clicks Neurological exam: Present: alert, oriented X3, CN II-XII intact Psychiatric exam: Present: normal affect, normal mood Skin exam: Present: other (Vesicular lesions on the back, left upper extremity, left side of the neck, and upper lip. There are a few scattered vesicular lesions on the right side of the back as well.) Course Vital Signs 12/18/22 12/18/22 13:39 14:58 Temperature 98.5 F Pulse Rate 116 H 90 Respiratory 22 18 Rate Blood Pressure 183/98 143/94 O2 Sat by Pulse 100 100 Oximetry Medical Decision Making - Medical Decision Making This is a 27-year-old male who presents to the emergency department for a rash. Was pt. sent in by a medical professional or institution? @ -No Did you speak to anyone other than the patient for history? @ -No Did you review nursing and triage notes? @ -Yes, and I agree, it is accurate with regards to the patient's symptoms. Were old charts reviewed? @ -No Differential Diagnosis? @ -Differential Rash: Roseola, measles, Lyme disease, erythema multiforme, cellulitis, toxic shock syndrome, Jonathan John syndrome, Kawasaki disease, myranda mountain spotted fever, contact dermatitis, allergic dermatitis, measles, mumps, rubella, varicella, meningococcal disease, drug reaction, herpes zoster, coxsackievirus, This is not meant to be an all-inclusive list. What testing was considered but not performed? (CT, X-rays, U/S, labs)? Why? @ -None What meds were considered but not given? Why? @ -None Did you discuss the management of the patient with other professionals? @ -No Did you reconcile home meds? @ -No Was smoking cessation discussed for >3mins.? @ -No Was critical care preformed (if so, how long)? @ -No Were there social determinants of health that impacted care today? How? (Homelessness, low income, unemployed, alcoholism, drug addiction, transportation, low edu. Level, literacy, decrease access to med. care, long term, rehab)? @ -No Was there de-escalation of care discussed even if they declined? (Discuss DNR or withdrawal of care, Hospice)? @ -No What co-morbidities impacted this encounter? (DM, HTN, Smoking, COPD, CAD, Cancer, CVA, Hep., AIDS, mental health diagnosis, sleep apnea, morbid obesity)? @ -None Was patient admitted / discharged? @ -Discharged. He does have notable vesicular lesions, however a few do cross midline and do not necessarily follow a dermatomal distribution. This may be an irregular presentation of shingles versus a dermatitis of unknown origin. Given that this feels similar to the shingles outbreak he previously had, will put the patient on a course of Valtrex. Will also put him on a course of prednisone in the event this is a dermatitis. He was given a dose of Valtrex and IM Solu-Medrol in the emergency department. Prescription for Valtrex and prednisone provided with dosing instructions reviewed. Undiagnosed new problem with uncertain prognosis? @ -Rash Drug Therapy requiring intensive monitoring for toxicity (Heparin, Nitro, Insulin, Cardizem)? @ -None Were any procedures done? @ -None Diagnosis/symptom? @ -Rash Acute, or Chronic, or Acute on Chronic? @ -Acute Uncomplicated (without systemic symptoms) or Complicated (systemic symptoms)? @ -Uncomplicated Side effects of treatment? @ -None Exacerbation, Progression, or Severe Exacerbation] @ -Not applicable Poses a threat to life or bodily function? @ -The itching is impacting his ability to function. Return precautions reviewed in depth, the patient is instructed to return to the emergency department with any new, worsening, or concerning symptoms. Patient verbalized understanding. This case was discussed in detail with the attending ED physician, Dr. Alcantara. Presentation, findings, and treatment plan discussed in detail as well. Disposition Clinical Impression: Shingles, Dermatitis Disposition: HOME SELF-CARE Instructions (If sedation given, give patient instructions): Shingles (ED), Acute Rash (ED) Additional Instructions: Return to the emergency department with any new, worsening, or concerning symptoms. Take the Valtrex 3 times daily for 7 days as prescribed. The prednisone will be taken daily for 5 days. Follow up with your primary care provider in 1-2 days. Prescriptions: predniSONE 50 mg PO DAILY 5 Days #5 tab valACYclovir HCL [Valacyclovir] 1,000 mg PO Q8H 7 Days #21 tab Is patient prescribed a controlled substance at d/c from ED?: No Referrals: Kanika Cedeño MD [Primary Care Provider] - 1-2 days
[2022-12-18 15:01] VITALS: BP 143/94; PULSE 90; RESP 18
== END 2022-12-18 14:58 | disposition home or self-care (01) ==
LOC: EC 13:38
DX: B02.9 Zoster without complications (principal); L30.9 Dermatitis, unspecified; I10 Essential (primary) hypertension; F90.9 Attention-deficit hyperactivity disorder, unspecified type; F41.9 Anxiety disorder, unspecified; F31.9 Bipolar disorder, unspecified; F17.200 Nicotine dependence, unspecified, uncomplicated; Z88.5 Allergy status to narcotic agent; Z88.8 Allergy status to other drugs, medicaments and biological substances
CPT/HCPCS: 99282; 96372; J2930